=== PATIENT | female | born 1955 | race Caucasian/White ===

== ENCOUNTER 2020-06-30 08:14 | Outpatient (REF) | payer MEDICARE, MEDICAID, SELFPAY ==
[2020-06-30 11:53] LABS: Hematocrit 41.7 % (37-47); Hemoglobin 13.3 g/dl (12.0-16.0)
[2020-06-30 12:10] LABS: Alanine Aminotransferase 29 U/L (0-31); Albumin Level 4.8 g/dL (3.5-5.0); Alkaline Phosphatase 56 U/L (39-117); Anion Gap 16 (12-20); Aspartate Amino Transferase 26 U/L (5-31); Bilirubin Direct 0.2 mg/dL (0.0-0.5); Bilirubin Total 0.4 mg/dL (0.0-1.0); Blood Urea Nitrogen 15 mg/dL (9-16); Calcium 9.5 mg/dL (8.4-10.2); Carbon Dioxide 26 mmol/L (22-29); Chloride 101 mmol/L (96-108); Cholesterol 226 mg/dL; Estimated Glomerular Filt Rate > 60; Glucose Fasting 94 mg/dL (60-99); HDL Cholesterol 70 mg/dL; LDL Cholesterol Calculated 128 mg/dl; Potassium 4.1 mmol/l (3.3-5.1); Sodium 139 mmol/L (135-145); Total Protein 7.5 g/dL (6.5-8.0); Triglycerides 141 mg/dL
[2020-06-30 12:30] LABS: TSH reflex Free T4 3.95 mIU/mL (0.32-4.0)
== END 2020-06-30 08:15 | disposition home or self-care (01) ==
LOC: HO.HMGCLDS 08:14
PROVIDERS: PCP Internal Medicine; Visit Provider Internal Medicine
DX: F41.1 Generalized anxiety disorder (principal); E78.9 Disorder of lipoprotein metabolism, unspecified; E03.8 Other specified hypothyroidism
CPT/HCPCS: 36415; 80048; 80061; 80076; 84443; 85014; 85018

== ENCOUNTER 2020-09-20 14:22 | Outpatient (REF) | payer MEDICARE, MEDICAID, SELFPAY | END 2020-09-20 14:23 | disposition home or self-care (01) | LOC: HO.LAB 14:22 | PROVIDERS: Visit Provider Nurse Practitioner Family | DX: R53.83 Other fatigue (principal); Z20.822 Contact with and (suspected) exposure to COVID-19 | CPT/HCPCS: U0003; U0005 ==

== ENCOUNTER 2020-12-06 10:22 | Outpatient (REF) | payer MEDICARE, MEDICAID, SELFPAY ==
--- NOTE | 2020-12-06 11:42 | PFT_ITS ---
FLOWS: FEV1 of 61% of predicted at 1.79 L. FVC 86% of predicted at 3.29 L. FEV1 to FVC ratio of 0.54. No bronchodilator response. LUNG VOLUMES: Total lung capacity 128% of predicted at 7.48 L. Residual volume 194% of predicted at 4.56 L. Slow vital capacity 84% of predicted at 2.92 L. Expiratory reserve volume 71% of predicted at 0.71 L. Diffusion capacity is moderately decreased. IMPRESSION: Moderate obstructive ventilatory defect with no bronchodilator response. Increased total lung capacity suggests hyperinflation. Increased residual volume suggests air trapping. Decreased diffusion capacity suggests emphysema. MD MARCIO Smalls/MODL / [id number]
== END 2020-12-06 10:23 | disposition home or self-care (01) ==
LOC: HO.RESP 10:22
PROVIDERS: PCP Internal Medicine; Visit Provider Internal Medicine
DX: R06.02 Shortness of breath (principal); Z72.0 Tobacco use
CPT/HCPCS: 94060; 94727; 94729

== ENCOUNTER 2021-05-16 06:17 | Outpatient (REF) | payer MEDICARE, MEDICAID, SELFPAY ==
[2021-05-16 11:51] LABS: Alanine Aminotransferase 28 U/L (0-31); Albumin Level 4.7 g/dL (3.5-5.0); Alkaline Phosphatase 62 U/L (39-117); Anion Gap 19 (12-20); Aspartate Amino Transferase 24 U/L (5-31); Bilirubin Direct 0.2 mg/dL (0.0-0.5); Bilirubin Total 0.4 mg/dL (0.0-1.0); Blood Urea Nitrogen 19 mg/dL (9-16); Calcium 10.2 mg/dL (8.4-10.2); Carbon Dioxide 23 mmol/L (22-29); Chloride 102 mmol/L (96-108); Cholesterol 206 mg/dL; Estimated Glomerular Filt Rate > 60; Glucose Random 86 mg/dL (60-115); HDL Cholesterol 66 mg/dL; LDL Cholesterol Calculated 113 mg/dl; Potassium 4.6 mmol/L (3.3-5.1); Sodium 139 mmol/L (135-145); Total Protein 7.6 g/dL (6.5-8.0); Triglycerides 139 mg/dL
[2021-05-16 12:14] LABS: TSH reflex Free T4 3.25 uIU/mL (0.32-4.0)
[2021-05-18 04:52] LABS: LDL Cholesterol Direct 107 mg/dL (<100)
== END 2021-05-16 06:18 | disposition home or self-care (01) ==
LOC: HO.HMGCLDS 06:17
PROVIDERS: PCP Internal Medicine; Visit Provider Internal Medicine
DX: E03.8 Other specified hypothyroidism (principal); E78.9 Disorder of lipoprotein metabolism, unspecified; F41.1 Generalized anxiety disorder; Z72.0 Tobacco use
CPT/HCPCS: 36415; 80053; 80061; 82248; 83721; 84443

== ENCOUNTER 2021-12-26 07:27 | Outpatient (REF) | payer MEDICARE, MEDICAID, SELFPAY ==
[2021-12-26 11:52] LABS: Alanine Aminotransferase 22 U/L (0-31); Albumin Level 4.8 g/dL (3.5-5.0); Alkaline Phosphatase 66 U/L (39-117); Anion Gap 13 (12-20); Aspartate Amino Transferase 20 U/L (5-31); Bilirubin Total 0.5 mg/dL (0.0-1.0); Blood Urea Nitrogen 13 mg/dL (9-16); Calcium 9.8 mg/dL (8.4-10.2); Carbon Dioxide 28 mmol/L (22-29); Chloride 102 mmol/L (96-108); Estimated Glomerular Filt Rate > 60; Glucose Random 107 mg/dL (60-115); Potassium 4.7 mmol/L (3.3-5.1); Sodium 138 mmol/L (135-145); Total Protein 7.6 g/dL (6.5-8.0)
[2021-12-26 12:02] LABS: TSH reflex Free T4 1.87 uIU/mL (0.32-4.0)
== END 2021-12-26 07:28 | disposition home or self-care (01) ==
LOC: HO.HMGCLDS 07:27
PROVIDERS: PCP Internal Medicine; Visit Provider Internal Medicine
DX: E03.8 Other specified hypothyroidism (principal); E78.9 Disorder of lipoprotein metabolism, unspecified
CPT/HCPCS: 36415; 80053; 84443

== ENCOUNTER 2022-05-07 07:50 | Outpatient (REF) | payer MEDICARE, MEDICAID, SELFPAY ==
[2022-05-07 13:03] LABS: Alanine Aminotransferase 23 U/L (0-31); Albumin Level 4.7 g/dL (3.5-5.0); Alkaline Phosphatase 61 U/L (39-117); Anion Gap 12 (12-20); Aspartate Amino Transferase 24 U/L (5-31); Bilirubin Total 0.4 mg/dL (0.0-1.0); Blood Urea Nitrogen 17 mg/dL (9-16); Carbon Dioxide 27 mmol/L (22-29); Chloride 103 mmol/L (96-108); Estimated Glomerular Filt Rate > 60; Glucose Random 98 mg/dL (60-115); Potassium 4.3 mmol/L (3.3-5.1); Sodium 138 mmol/L (135-145); Total Protein 7.6 g/dL (6.5-8.0)
[2022-05-09 09:52] LABS: LDL Cholesterol Direct 111 mg/dL (<100)
== END 2022-05-07 07:51 | disposition home or self-care (01) ==
LOC: HO.HMGCLDS 07:50
PROVIDERS: PCP Internal Medicine; Visit Provider Internal Medicine
DX: E03.8 Other specified hypothyroidism (principal); E78.9 Disorder of lipoprotein metabolism, unspecified; J44.9 Chronic obstructive pulmonary disease, unspecified; Z72.0 Tobacco use
CPT/HCPCS: 36415; 80053; 83721; 84443

== ENCOUNTER 2022-11-05 06:08 | Outpatient (REF) | payer MEDICARE, MEDICAID, SELFPAY ==
[2022-11-05 11:18] LABS: MANUAL DIFF FLAG NO
[2022-11-05 11:37] LABS: Basophils Absolute Auto 0.1 X10*3/uL (0.0-0.2); Basophils Percent Auto 0.8 % (0-2); Eosinophils Absolute Auto 0.3 X10*3/uL (0.0-0.4); Eosinophils Percent Auto 3.5 % (0-4); Hematocrit 41.4 % (37.0-47.0); Hemoglobin 13.2 g/dl (12.0-16.0); Imm Gran Abs Auto 0.02 X10*3/uL (0.00-0.03); Imm Gran Pct Auto 0.3 % (0.0-0.4); Lymphocytes Absolute Auto 2.7 X10*3/uL (1.2-4.9); Lymphocytes Percent Auto 36.7 % (20-40); Mean Corpuscular HGB Conc 31.9 g/dl (31.0-35.0); Mean Corpuscular Hemoglobin 29.7 pg (27.0-33.0); Monocytes Absolute Auto 0.8 X10*3/uL (0.1-1.2); Monocytes Percent Auto 10.2 % (2-11); Neutrophils Absolute Auto 3.6 x10*3/uL (2.0-8.3); Neutrophils Percent Auto 48.5 % (45-73); Platelet Count 339 X10*3/uL (160-400); Red Blood Count 4.45 X10*6/uL (4.20-5.50); Red Cell Distribution Width 12.6 % (11.0-16.0); White Blood Count 7.4 X10*3/uL (4.8-10.8)
[2022-11-05 11:55] LABS: Alanine Aminotransferase 17 U/L (0-31); Albumin Level 4.5 g/dL (3.5-5.0); Alkaline Phosphatase 54 U/L (39-117); Anion Gap 12 (12-20); Aspartate Amino Transferase 19 U/L (5-31); Bilirubin Total 0.5 mg/dL (0.0-1.0); Blood Urea Nitrogen 13 mg/dL (9-16); Calcium 9.8 mg/dL (8.4-10.2); Carbon Dioxide 26 mmol/L (22-29); Chloride 107 mmol/L (96-108); Cholesterol 208 mg/dL; Estimated Glomerular Filt Rate > 60; Glucose Fasting 91 mg/dL (60-99); HDL Cholesterol 68 mg/dL; LDL Cholesterol Calculated 118 mg/dl; Potassium 4.1 mmol/L (3.3-5.1); Sodium 141 mmol/L (135-145); Total Protein 7.2 g/dL (6.5-8.0); Triglycerides 114 mg/dL
[2022-11-05 12:18] LABS: TSH reflex Free T4 1.72 uIU/mL (0.32-4.0)
== END 2022-11-05 06:09 | disposition home or self-care (01) ==
LOC: HO.HMGCLDS 06:08
PROVIDERS: PCP Internal Medicine; Visit Provider Internal Medicine
DX: Z00.01 Encounter for general adult medical examination with abnormal findings (principal); E03.8 Other specified hypothyroidism; E78.9 Disorder of lipoprotein metabolism, unspecified; J44.9 Chronic obstructive pulmonary disease, unspecified; Z72.0 Tobacco use
CPT/HCPCS: 36415; 80053; 80061; 84443; 85025

== ENCOUNTER 2023-04-29 09:30 | Outpatient (AMB) | payer MEDICARE, MEDICAID, SELFPAY ==
[2023-04-29 09:38] VITALS: BP 122/70; PULSE 111; O2SAT 98; BMI 18.2
--- NOTE | 2023-04-29 09:38 | MHC.PC.OV ---
Vital Signs 04/29/23 09:38 Height 5 ft 8 in Weight 120 lb BMI 18.2 BP 122/70 Blood Pressure Location Rt brachial Position Sitting Pulse 111 H Pulse Source Pulse Oximeter Pulse Oximetry (%) 98 Oxygen Delivery Method Room Air Intake Visit Reasons: 6 month follow up Commodity Director Required: No Accompanied by: Self / Same As Patient Allergies No Known Drug Allergies [NO KNOWN DRUG ALLERGIES] Allergy (Unknown, Verified 04/29/23 09:38) NONE Medication List - Last Reconciled 04/29/23 by Phill Bird MD levothyroxine 50 mcg PO DAILY 90 days simvastatin 20 mg PO BEDTIME 90 days valacyclovir 1,000 mg PO DAILY 30 days Tobacco use date assessed: 10/30/22 Fall risk assessment: No Falls in past year Last assessed Fall Risk: 04/29/23 Dental Screening Dental Screen Date: 04/29/23 Did you have a dental visit in the last 12 months?: Yes Did you have a dental problem in the last 6 months where you did not have access to dental care?: No Was dental information given to patient?: Patient has dentist HPI 6 month follow up HPI Details Patient is 67-year-old female came in today for her regular follow-up appointment Patient says that she has stop smoking marijuana that she was smoking for years And she feels very anxious now, she agree to take medication I have sent Lexapro 10 mg tablets patient is to take half a tablet for a week and then full tablet However she continued to smoke tobacco. Patient have moderate COPD , she has been declining to see environmental communications specialist all this time. She had pulmonary function test last year which showed the moderate COPD She continued to decline to use any inhalers at this time. But admits to wheezing at night and having difficulty breathing at night as well Pulse ox is 98% on room air She agree to see environmental communications specialist finally and has appointment next month Hypothyroidism: Patient is on levothyroxine her TSH has been stable She is due for labs Lipid disorder: Continue statin, no side effects. 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 Mother No problems noted. Brother No problems noted. Brother Substance use disorder Brother Fibromyalgia Daughter No problems noted. Sister No problems noted. Sister No problems noted. Sister No problems noted. Sister No problems noted. Sister No problems noted. Sister No problems noted. Sister No problems noted. Social History Housing: Assisted Living Facility Alcohol intake: former Patient Tobacco Use Status: Current everyday Tobacco user Cigarettes Per Day: 10 e-Cigarette/Vaping Use: Never Used service: No Current occupational status: retired Cognitive needs: No Hearing needs: No Vision needs: Yes Questionnaire PHQ-9 Over the last 2 weeks, how often have you been bothered by any of the following problems? 1. Little interest or pleasure in doing things: not at all 2. Feeling down, depressed, or hopeless: more than half the days 3. Trouble falling or staying asleep, or sleeping too much: more than half the days 4. Feeling tired or having little energy: more than half the days 5. Poor appetite or overeating: not at all 6. Feeling bad about yourself - or that you are a failure or have let yourself or your family down: more than half the days 7. Trouble concentrating on things, such as reading the newspaper or watching television: more than half the days 8. Moving or speaking so slowly that other people could have noticed. Or the opposite - being so fidgety or restless that you have been moving around a lot more than usual: more than half the days 9. Thoughts that you would be better off or of hurting yourself in some way: not at all Total score: 12 Depression Screening Interpretation: Positive Depression Screening Follow-up: New Medication prescribed and Community Mental Health Worker F/U Depression Screening Done: Yes 27336 - PHQ-9 Billing: Yes Source: Developed by Drs. Lester Mora, Dulce Byers, Mina Buckley and colleagues, with an educational iglesia from [employer]. Thrive Questionnaire Date Thrive assessed: 04/29/23 I am a: Patient What is your living situation today?: I have a steady place to live Within the past 12 months, did the food you bought not last and you didn't have the money to get more?: Never true Within the past 12 months, did you worry whether your food would run out before you got money to buy more?: Never true Do you have trouble paying for medicines?: No Do you have trouble getting transportation to medical appointments?: Yes Do you have trouble paying your heating and electricity bill?: No Do you have trouble taking care of your child, family member or friend?: No Do you have trouble with day-to-day activities such as bathing, preparing meals, shopping, managing finances, etc.?: No Are you currently unemployed and looking for a job?: No Are you interested in more education?: No Please select the resources that you would like help with: None Currently or been in a relationship where the following occur: no concerns reported CHELITA-7 AMB Questionnaire CHELITA-7 Date CHELITA - 7 assessed: 04/29/23 Feeling nervous, anxious, or on edge: 3 = Nearly every day Not being able to stop or control worryin = More than half the days Worrying too much about different things: 2 = More than half the days Trouble relaxin = Nearly every day Being so restless that it is hard to sit still: 2 = More than half the days Becoming easily annoyed or irritable: 3 = Nearly every day Feeling afraid as if something awful might happen: 3 = Nearly every day Total CHELITA-7 score (0-4 normal; 5-9 mild; 10-14 moderate; 15-21 severe): 18 Source: Developed by Drs. Lester Mora, Dulce Byers, Mina Buckley and colleagues, with an educational iglesia from [employer]. CHELITA-7 Assessment Billing CHELITA-7 Assessment Tool: CHELITA-7 Assessment 57084 Review of Systems Const Denies chills and Denies fever(s) ENT Denies epistaxis and Denies nasal discharge Card Denies chest pain Resp Denies chest congestion and Denies hemoptysis GI Denies diarrhea and Denies nausea Skin/Breast Denies rash Neuro Reports no additional complaints Psych Reports no additional complaints Endo Reports no additional complaints Physical exam (Primary Care) Vital Signs: Last Vital Signs Pulse 111 H 04/29/23 09:38 BP 122/70 04/29/23 09:38 Pulse Ox 98 04/29/23 09:38 Oxygen Delivery Method Room Air 04/29/23 09:38 BMI result Body Mass Index 18.2 Tobacco/Smoking Status: Tobacco use Status Tobacco use date assessed 10/30/22 04/29/23 09:38 Patient Tobacco Use Status Current everyday Tobacco 04/29/23 09:38 e-Cigarette/Vaping Use Never Used 04/29/23 09:38 PHQ-9: PHQ-9 Score PHQ-9: Total score 12 04/29/23 10:19 Depression Screening Interpretation: Positive Depression Screening Follow-up: New Medication prescribed and Community Mental Health Worker F/U Thrive Assessment: Date of Thrive Assessment Date Thrive assessed 04/29/23 04/29/23 10:19 Currently or been in a relationship where the following occur: no concerns reported Const General: cooperative, comfortable and no acute distress Orientation/consciousness: patient oriented x3 HENMT Head: Yes normocephalic Eyes General: appearance normal, both eyes and all related structures Neck Neck: Yes supple Resp Effort & Inspection: normal respiratory effort, no cough and no stridor Cardio Rhythm: regular rhythm Heart sounds: S1 normal heart sound present and S2 normal heart sound present Skin General skin exam: turgor normal Neuro General: patient oriented x3, tone normal and moves all extremities Extrem Right lower extremity: no edema Left lower extremity: no edema Assessment and Plan Assessment & Plan (1) Anxiety, generalized: Code(s): F41.1 - Generalized anxiety disorder (2) Lipid disorder: Code(s): E78.9 - Disorder of lipoprotein metabolism, unspecified (3) Other specified hypothyroidism: Code(s): E03.8 - Other specified hypothyroidism (4) Major depression, recurrent: Code(s): F33.9 - Major depressive disorder, recurrent, unspecified Qualifiers: Active/Remission status: currently active Major depression episode severity: moderate Qualified Code(s): F33.1 - Major depressive disorder, recurrent, moderate (5) COPD, moderate: Code(s): J44.9 - Chronic obstructive pulmonary disease, unspecified (6) Tobacco abuse: Code(s): Z72.0 - Tobacco use (7) Chromhidrosis: Code(s): 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 Patient have moderate COPD , she has been declining to see environmental communications specialist all this time. She had pulmonary function test last year which showed the moderate COPD She continued to decline to use any inhalers at this time. But admits to wheezing at night and having difficulty breathing at night as well Pulse ox is 98% on room air She agree to see environmental communications specialist finally and has appointment next month Hypothyroidism: Patient is on levothyroxine her TSH has been stable She is due for labs Lipid disorder: Continue statin, no side effects. 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 We will call patient in 3 weeks to see how she is doing with the new medication Patient will return in 4 months for follow-up appointment Orders: Orders Complete Blood Count Auto Diff Today E03.8 - Other specified hypothyroidism, E78.9 - Disorder of lipoprotein metabolism, unspecified, F41.1 - Generalized anxiety disorder, J44.9 - Chronic obstructive pulmonary disease, unspecified, Z72.0 - Tobacco use Lipid Panel Today E03.8 - Other specified hypothyroidism, E78.9 - Disorder of lipoprotein metabolism, unspecified, F41.1 - Generalized anxiety disorder, J44.9 - Chronic obstructive pulmonary disease, unspecified, Z72.0 - Tobacco use Comprehensive Needles. Panel Fast Today E03.8 - Other specified hypothyroidism, E78.9 - Disorder of lipoprotein metabolism, unspecified, F41.1 - Generalized anxiety disorder, J44.9 - Chronic obstructive pulmonary disease, unspecified, Z72.0 - Tobacco use TSH reflex Free T4 Today E03.8 - Other specified hypothyroidism, E78.9 - Disorder of lipoprotein metabolism, unspecified, F41.1 - Generalized anxiety disorder, J44.9 - Chronic obstructive pulmonary disease, unspecified, Z72.0 - Tobacco use Medications: New escitalopram oxalate (Lexapro) 10 mg PO DAILY 30 tabs 0RF Coding Level of Care Code Est Pt Level 4 (56996) Diagnoses Anxiety, generalized F41.1 Lipid disorder E78.9 Other specified hypothyroidism E03.8 Moderate episode of recurrent major depressive disorder F33.1 Active/Remission status: currently active Major depression episode severity: moderate COPD, moderate J44.9 Tobacco abuse Z72.0 Chromhidrosis L75.1 Additional Codes CHELITA-7 Assessment Billing - CHELITA-7 Assessment Tool: CHELITA-7 Assessment 14869 ([id number])
== END 2023-04-29 10:26 | disposition home or self-care (01) ==
PROVIDERS: Visit Provider Internal Medicine
DX: F41.1 Generalized anxiety disorder (principal); F33.1 Major depressive disorder, recurrent, moderate; J44.9 Chronic obstructive pulmonary disease, unspecified; E03.8 Other specified hypothyroidism; E78.9 Disorder of lipoprotein metabolism, unspecified; Z72.0 Tobacco use; L75.1 Chromhidrosis
CPT/HCPCS: 96127; 99214

== ENCOUNTER 2023-04-30 07:22 | Outpatient (REF) | payer MEDICARE, MEDICAID, SELFPAY ==
[2023-04-30 11:20] LABS: MANUAL DIFF FLAG NO
[2023-04-30 12:03] LABS: Alanine Aminotransferase 22 U/L (0-31); Albumin Level 4.6 g/dL (3.5-5.0); Alkaline Phosphatase 57 U/L (39-117); Anion Gap 11 (12-20); Aspartate Amino Transferase 21 U/L (5-31); Bilirubin Total 0.5 mg/dL (0.0-1.0); Blood Urea Nitrogen 13 mg/dL (9-16); Calcium 9.9 mg/dL (8.4-10.2); Carbon Dioxide 28 mmol/L (22-29); Chloride 106 mmol/L (96-108); Cholesterol 207 mg/dL (<200); Estimated Glomerular Filt Rate > 60; Glucose Fasting 91 mg/dL (60-99); HDL Cholesterol 68 mg/dL (>40); LDL Cholesterol Calculated 116 mg/dL (<100); Potassium 3.8 mmol/L (3.3-5.1); Sodium 141 mmol/L (135-145); Total Protein 7.7 g/dL (6.5-8.0); Triglycerides 116 mg/dL (<150)
[2023-04-30 12:04] LABS: Basophils Absolute Auto 0.1 X10*3/uL (0.0-0.2); Basophils Percent Auto 0.9 % (0-2); Eosinophils Absolute Auto 0.3 X10*3/uL (0.0-0.4); Eosinophils Percent Auto 3.6 % (0-4); Hematocrit 41.4 % (37.0-47.0); Hemoglobin 13.2 g/dl (12.0-16.0); Imm Gran Abs Auto 0.01 X10*3/uL (0.00-0.03); Imm Gran Pct Auto 0.1 % (0.0-0.4); Lymphocytes Percent Auto 38.9 % (20-40); Mean Corpuscular HGB Conc 31.9 g/dl (31.0-35.0); Mean Corpuscular Hemoglobin 29.9 pg (27.0-33.0); Mean Corpuscular Volume 93.7 fL (80.0-98.0); Mean Platelet Volume 9.2 fL (9.4-12.3); Monocytes Absolute Auto 0.7 X10*3/uL (0.1-1.2); Monocytes Percent Auto 9.1 % (2-11); Neutrophils Absolute Auto 3.6 x10*3/uL (2.0-8.3); Neutrophils Percent Auto 47.4 % (45-73); Platelet Count 376 X10*3/uL (160-400); Red Blood Count 4.42 X10*6/uL (4.20-5.50); Red Cell Distribution Width 12.4 % (11.0-16.0); White Blood Count 7.6 X10*3/uL (4.8-10.8)
[2023-04-30 12:09] LABS: TSH reflex Free T4 1.74 uIU/mL (0.32-4.0)
== END 2023-04-30 07:23 | disposition home or self-care (01) ==
LOC: HO.HMGCLDS 07:22
PROVIDERS: PCP Internal Medicine; Visit Provider Internal Medicine
DX: F41.1 Generalized anxiety disorder (principal); E78.9 Disorder of lipoprotein metabolism, unspecified; E03.8 Other specified hypothyroidism; J44.9 Chronic obstructive pulmonary disease, unspecified; Z72.0 Tobacco use
CPT/HCPCS: 36415; 80053; 80061; 84443; 85025

== ENCOUNTER 2023-05-02 12:25 | Outpatient (AMB) | payer MEDICARE, MEDICAID, SELFPAY ==
--- NOTE | 2023-05-02 12:45 | MHC.PC.OV ---
Vital Signs 05/02/23 12:46 Height 5 ft 8 in Weight 118 lb 6 oz BMI 18.0 BP 120/58 L Blood Pressure Location Rt brachial Position Sitting Pulse 103 H Pulse Source Pulse Oximeter Pulse Oximetry (%) 98 Oxygen Delivery Method Room Air Intake Visit Reasons: Chest Pain EKG ~ Allergies No Known Drug Allergies [NO KNOWN DRUG ALLERGIES] Allergy (Unknown, Verified 05/02/23 13:52) NONE Medication List - Last Reconciled 05/02/23 by Phill Bird MD escitalopram oxalate (Lexapro) 10 mg PO DAILY levothyroxine 50 mcg PO DAILY 90 days simvastatin 20 mg PO BEDTIME 90 days valacyclovir 1,000 mg PO DAILY 30 days Tobacco use date assessed: 10/30/22 HPI Chest Pain EKG ~ HPI Details Patient is 68-year-old female came in today to be evaluated for chest pain that she has been having for the past 2 days Patient says that pain is located in the mid of her chest and feels like pressure. There is no associated diaphoresis or radiation of pain there is no nausea vomiting Patient does have anxiety and is taking no medication. She was called in today to have an EKG. Couple of days ago when patient called us we instructed her to go to emergency room but patient got upset and hang up EKG done today shows T-wave inversion in AVR v1 v2, , tall T-waves in lateral leads We give patient aspirin and put her on 2 L of oxygen Ambulance was called in she agree to go to emergency room for evaluation. I have no previous EKG to compare [facility] Medical History Other specified hypothyroidism Surgical History No pertinent past surgical history Family History Father No problems noted. Mother No problems noted. Brother No problems noted. Brother Substance use disorder Brother Fibromyalgia Daughter No problems noted. Sister No problems noted. Sister No problems noted. Sister No problems noted. Sister No problems noted. Sister No problems noted. Sister No problems noted. Sister No problems noted. Social History Housing: Assisted Living Facility Alcohol intake: current Alcohol intake frequency: holidays/special occasions only Patient Tobacco Use Status: Current everyday Tobacco user Cigarettes Per Day: 10 Smoked in Last 30 Days: Yes e-Cigarette/Vaping Use: Never Used Use of substances other than those prescribed or required for medical reasons: Yes Substance Use Type: Marijuana Advance Directives: Yes Advance Directives Information Provided: Yes Advance Directives on File: No service: No Current occupational status: retired Cognitive needs: No Hearing needs: No Vision needs: Yes Questionnaire Thrive Questionnaire Date Thrive assessed: 04/29/23 CHELITA-7 AMB Questionnaire CHELITA-7 Date CHELITA - 7 assessed: 04/29/23 Source: Developed by Drs. Lester Mora, Dulce Byers, Mina Buckley and colleagues, with an educational iglesia from [employer]. Review of Systems Const Denies chills and Denies fever(s) ENT Denies epistaxis and Denies nasal discharge Resp Denies chest congestion, Denies cough and Denies hemoptysis GI Denies diarrhea and Denies nausea Skin/Breast Denies rash Neuro Reports no additional complaints Psych Reports no additional complaints Endo Reports no additional complaints Physical exam (Primary Care) Vital Signs: Last Vital Signs Pulse 103 H 05/02/23 12:46 BP 120/58 L 05/02/23 12:46 Pulse Ox 98 05/02/23 12:46 Oxygen Delivery Method Room Air 05/02/23 12:46 BMI result Body Mass Index 18.0 Tobacco/Smoking Status: Tobacco use Status Tobacco use date assessed 10/30/22 05/02/23 12:47 Patient Tobacco Use Status Current everyday Tobacco 05/02/23 12:47 e-Cigarette/Vaping Use Never Used 05/02/23 12:47 Thrive Assessment: Date of Thrive Assessment Date Thrive assessed 04/29/23 05/02/23 12:47 Const General: cooperative, comfortable and no acute distress Orientation/consciousness: patient oriented x3 HENMT Head: Yes normocephalic Eyes General: appearance normal, both eyes and all related structures Neck Neck: Yes supple Resp Effort & Inspection: normal respiratory effort, no cough and no stridor Cardio Rhythm: regular rhythm Heart sounds: S1 normal heart sound present and S2 normal heart sound present Skin General skin exam: turgor normal Neuro General: patient oriented x3, tone normal and moves all extremities Extrem Right lower extremity: no edema Left lower extremity: no edema Office Meds aspirin 325 mg tablet Performing Provider: Phill Bird MD Performing Location: [facility] Administered by: Helga Briceño RN on 05/02/23 13:03 Dose Route Admin Location Dispensed Lot Number Expiration Date NDC Segmental Paver Installer 325 mg PO 325 mg [id number] 10/15/23 17758-345-45 [employer] Assessment and Plan Assessment & Plan (1) Acute chest pain: Code(s): R07.9 - Chest pain, unspecified Plan Patient is 68-year-old female came in today to be evaluated for chest pain that she has been having for the past 2 days Patient says that pain is located in the mid of her chest and feels like pressure. There is no associated diaphoresis or radiation of pain there is no nausea vomiting Patient does have anxiety and is taking no medication. She was called in today to have an EKG. Couple of days ago when patient called us we instructed her to go to emergency room but patient got upset and hang up EKG done today shows T-wave inversion in AVR v1 v2, , tall T-waves in lateral leads We give patient aspirin and put her on 2 L of oxygen Ambulance was called in she agree to go to emergency room for evaluation. I have no previous EKG to compare Patient also have history of severe COPD And hypothyroidism Orders: Orders AMB Aspirin Adult Dose Today R07.9 - Chest pain, unspecified Coding Level of Care Code Est Pt Level 5 (46104) Diagnoses Acute chest pain R07.9
[2023-05-02 12:46] VITALS: BP 120/58; PULSE 103; O2SAT 98; BMI 18.0
== END 2023-05-02 13:43 | disposition home or self-care (01) ==
PROVIDERS: PCP Internal Medicine; Visit Provider Internal Medicine
DX: R07.9 Chest pain, unspecified (principal)
CPT/HCPCS: 93010; 99215

== ENCOUNTER 2023-05-02 13:38 | Emergency (ER) | payer MEDICARE, MEDICAID, SELFPAY ==
--- NOTE | 2023-05-02 | ECG_ITS ---
Test Reason : CHEST PAIN Blood Pressure : / mmHG Vent. Rate : 070 BPM Atrial Rate : 070 BPM P-R Int : 156 ms QRS Dur : 088 ms QT Int : 392 ms P-R-T Axes : 078 122 073 degrees QTc Int : 423 ms Normal sinus rhythm with sinus arrhythmia Right axis deviation RSR' or QR pattern in V1 suggests right ventricular conduction delay Pulmonary disease pattern Minimal voltage criteria for LVH, may be normal variant ( Jatin product ) Abnormal ECG When compared with ECG of 22-SEP-2012 19:48, Vent. rate has decreased BY 50 BPM Referred By: Generic ED Physician Electronically Signed By:PARKER SCHWAB MD
--- NOTE | ~2023-05-02 | XR_ITS ---
EXAMINATION: CHEST 2 VIEWS CLINICAL INFORMATION: chest pain. COMPARISON: 04/01/2015. TECHNIQUE: PA and lateral views of the chest obtained. FINDINGS: The lungs are hyperinflated with flattening to the diaphragms and increased retrosternal airspace again noted. No focal infiltrate, effusion, edema, or pneumothorax. Cardiac and mediastinal silhouettes are within normal limits for technique. No acute bony abnormality seen XR/XR chest 2V IMPRESSION: Hyperinflated but otherwise no evidence of acute disease.
[2023-05-02 13:52] VITALS: BMI 17.8
[2023-05-02 13:58] VITALS: BP 117/65; PULSE 68; RESP 18; TEMP 36.9; O2SAT 97
--- NOTE | 2023-05-02 14:08 | ED_ITS ---
HPI - Chest Pain General Chief Complaint: Chest Pain Stated Complaint: CHEST PAIN Time Seen by Provider: 05/02/23 13:58 Source: patient, EMS and RN notes reviewed Mode of arrival: EMS Limitations: no limitations History of Present Illness HPI narrative: Patient is a 68-year-old female with history of COPD, hypothyroid, current smoker, anxiety presenting to the emergency department from PCP office for abnormal EKG. Patient saw PCP on 04/29 for routine visit and forgot to mention that she has been having intermittent episodes of chest pain for the past month. She states that she called her PCP shortly after leaving the appointment and reported the chest pain, so was back in the office today for EKG and evaluation of chest pain. States episodes are brief, lasting a few seconds, and occur at rest. States they are not associated with shortness of breath. Denies any nausea, vomiting, or diaphoresis associated with episodes. Denies any palpitations, dizziness or lightheadedness. Denies fevers. Denies any radiation of pain. Denies any episodes of chest pain today. Denies calf pain or swelling. States I feel like it's because of my smoking. complaint: chest pain Pertinent past history: other (COPD) Onset (ago): month(s) Timing of current episode: episodic Prior episodes: Yes Onset: during rest Pain location: substernal Pain radiation: none Severity: moderate Quality: sharp and shooting Relieving factors: nothing Exacerbating factors: nothing Treatment prior to arrival: none Related Data Previous Rx's Medication Instructions Recorded valacyclovir 1 gram tablet 1,000 mg PO DAILY 30 days #30 tabs 01/13/23 levothyroxine 50 mcg tablet 50 mcg PO DAILY 90 days #90 tabs 04/25/23 simvastatin 20 mg tablet 20 mg PO BEDTIME 90 days #90 tabs 04/25/23 escitalopram oxalate 10 mg tablet 10 mg PO DAILY #30 tabs 04/29/23 (Lexapro) Allergies Allergy/AdvReac Type Severity Reaction Status Date / Time No Known Drug Allergies Allergy Unknown NONE Verified 05/02/23 13:52 [NO KNOWN DRUG ALLERGIES] Review of Systems 2 Review of Systems: As per HPI. Yes all other systems are reviewed and are negative Constitutional: Constitutional: Reports as per HPI FOR[facility]LY [facility], [facility] Past Medical History Medical History Other specified hypothyroidism Surgical History No pertinent past surgical history Family History Family History Father No problems noted. Mother No problems noted. Brother No problems noted. Brother Substance use disorder Brother Fibromyalgia Daughter No problems noted. Sister No problems noted. Sister No problems noted. Sister No problems noted. Sister No problems noted. Sister No problems noted. Sister No problems noted. Sister No problems noted. Social History Social History Housing: Assisted Living Facility Alcohol intake: current Alcohol intake frequency: holidays/special occasions only Patient Tobacco Use Status: Current everyday Tobacco user Cigarettes Per Day: 10 Smoked in Last 30 Days: Yes e-Cigarette/Vaping Use: Never Used Use of substances other than those prescribed or required for medical reasons: Yes Substance Use Type: Marijuana Advance Directives: Yes Advance Directives Information Provided: Yes Advance Directives on File: No service: No Current occupational status: retired Cognitive needs: No Hearing needs: No Vision needs: Yes Physical Exam 2 Vital Signs: Vital Signs: Last Vital Signs Temp 97.2 F 05/02/23 18:00 Pulse 64 05/02/23 18:00 Resp 16 05/02/23 18:00 BP 113/71 05/02/23 18:00 Pulse Ox 98 05/02/23 18:00 O2 Del Method Room Air 05/02/23 18:00 BMI result Body Mass Index 17.8 Vital signs have been reviewed and appear to be correct. Blood pressure normal. Heart rate normal. Respiratory rate normal. Temperature normal. Oxygen saturation normal. Const: General: cooperative, healthy appearing and no acute distress O rientation/consciousness: oriented to person, oriented to place, oriented to time and patient oriented x3 Limitations: no limitations HEENT: Head: Yes normocephalic and Yes atraumatic Ears: external ears normal General nose exam: Normal external nose present Face and sinus: Yes face symmetric Mouth: oropharynx normal and moist mucous membranes Throat: Yes uvula midline Eyes: Pupils: Equal, round and reactive pupils present Neck: Neck: Yes normal visual inspection and Yes supple Resp: Effort & Inspection: normal respiratory effort and able to speak in complete sentences Auscultation: clear to auscultation bilaterally Cardio: Rate: regular rate Rhythm: regular rhythm Heart sounds: S1 normal heart sound present and S2 normal heart sound present GI: Palpation (GI): Soft to palpation and nontender Auscultation: n ormoactive bowel sounds : General: Yes no CVA tenderness Back/Spine/Pelvis: Back: no CVA tenderness Skin: General skin exam: elasticity normal and turgor normal Neuro: General: oriented to person, oriented to place, oriented to time, patient oriented x3, moves all extremities, no focal motor deficits and CN's II- XI intact bilaterally Cranial nerves: Yes Equal, round and reactive pupils present Cognition (Neuro): normal cognition Extrem: General: Yes full ROM, Yes no pedal edema and Yes no calf tenderness Psych: Mental Status: mental status grossly normal Affect: normal affect Thought process: Normal thought process present Course Reevaluation(s) Reevaluation #1: repeat troponin also negative, patient stable for discharge. Time: 19:21 Medical Decision Making Medical Decision Making MDM Narrative: Patient is a 68-year-old female with history of COPD, hypothyroid, current smoker, anxiety presenting to the emergency department from PCP office for abnormal EKG. On exam patient is awake, A+Ox3, VS WNL, afebrile, normal neurological exam without focal deficits, physical exam findings as above. Given reported symptoms and physical exam findings, initial differential includes ACS, GERD, musculoskeletal pain. Less likely pneumonia, pneumothorax. Do not suspect aortic dissection, esophageal rupture, tamponade, endocarditis, pericarditis. PCP note states EKG in the office showed T wave inversion in AVR, V1, V2, tall T waves in lateral leads with no prior for comparison. She was given 324mg ASA there. Initial EKG here shows T wave inversion in AVR, V1, no inversion in v2, very slight ST elevation in v2, v3. Repeat EKG shows T wave inversion in AVR, V1, V2 with slight ST elevation in v3. Wells score 0, unlikely PE. Labs notable for no leukocytosis, no anemia, no significant electrolyte abnormalities, negative initial troponin. X-ray notable for hyperinflated lungs, no evidence of pna or ptx. My interpretation is in agreement with the radiologist's interpretation. Low risk HEART score of 3. Case discussed with Dr. Oro who feels that given EKG changes, should obtain repeat troponin in 3 hours. Patient signed out to BASSAM Chatterjee pending repeat trop. Wells' Criteria for Pulmonary Embolism from [employer] on 05/02/2023 All calculations should be rechecked by clinician prior to use RESULT SUMMARY: 0.0 points Low risk group: 1.3% chance of PE in an ED population. Another study assigned scores <=4 as ?PE Unlikely? and had a 3% incidence of PE. INPUTS: Clinical signs and symptoms of DVT ?> 0 = No PE is #1 diagnosis OR equally likely ?> 0 = No Heart rate > 100 ?> 0 = No Immobilization at least 3 days OR surgery in the previous 4 weeks ?> 0 = No Previous, objectively diagnosed PE or DVT ?> 0 = No Hemoptysis ?> 0 = No Malignancy w/ treatment within 6 months or palliative ?> 0 = No Differential Diagnosis Differential Diagnoses: The differential diagnosis associated with the presentation includes As per [facility] Admission/Observation Consideration of admission/observation: Escalation of care including admission/observation considered Lab Data [facility] Lab Attestation statement: I reviewed the patient's lab results. As per [facility] 05/02/23 14:39 05/02/23 14:39 Labs: Lab Results 05/02/23 05/02/23 Range/Units 14:39 18:06 WBC 8.2 (4.8-10.8) X10*3/uL RBC 4.33 (4.20-5.50) X10*6/uL Hgb 12.8 (12.0-16.0) g/dl Hct 39.4 (37.0-47.0) % MCV 91.0 (80.0-98.0) fL MCH 29.6 (27.0-33.0) pg MCHC 32.5 (31.0-35.0) g/dl RDW 12.2 (11.0-16.0) % Plt Count 280 D (160-400) X10*3/uL MPV 8.2 L (9.4-12.3) fL Immature Gran % (Auto) 0.1 (0.0-0.4) % Neut % (Auto) 62.5 (45-73) % Lymph % (Auto) 27.1 (20-40) % [place] % (Auto) 7.7 (2-11) % Eos % (Auto) 2.1 (0-4) % Baso % (Auto) 0.5 (0-2) % Lymph # (Auto) 2.2 (1.2-4.9) X10*3/uL [place] # (Auto) 0.6 (0.1-1.2) X10*3/uL Eos # (Auto) 0.2 (0.0-0.4) X10*3/uL Baso # (Auto) 0.0 (0.0-0.2) X10*3/uL Abs Immat Gran (auto) 0.01 (0.00-0.03) X10*3/uL Absolute Neuts (auto) 5.1 (2.0-8.3) x10*3/uL Absolute Nucleated RBC 0.000 (0.0-0.012) X10*3/uL Nucleated RBC % (auto) 0.0 (0.0-0.2) /100WBC PT 11.7 (11.1-13.3) SEC INR 1.0 (0.9-1.1) Sodium 139 (135-145) mmol/L Potassium 4.3 (3.3-5.1) mmol/L Chloride 105 (96-108) mmol/L Carbon Dioxide 28 (22-29) mmol/L Anion Gap 10 L (12-20) BUN 16 (9-16) mg/dL Creatinine 0.66 (0.5-1.4) mg/dL Estim Creat Clear Calc 71.5 Estimated GFR > 60 Random Glucose 90 (60-115) mg/dL Calcium 9.7 (8.4-10.2) mg/dL Total Bilirubin 0.3 (0.0-1.0) mg/dL AST 20 (5-31) U/L ALT 18 (0-31) U/L Alkaline Phosphatase 56 (39-117) U/L Troponin I High Sens < 2.7 < 2.7 (<3.5-17.0) ng/L Total Protein 7.2 (6.5-8.0) g/dL Albumin 4.4 (3.5-5.0) g/dL Independent Interpretation I performed an independent interpretation of an: Plain X-Ray Interpretation: Hyperinflated lungs, no evidence of pneumonia or pneumothorax Radiology Impression Discussion of test interpretation with radiology: I have reviewed the radiologist's reading. Radiologist Impression: XR/XR chest 2V IMPRESSION: Hyperinflated but otherwise no evidence of acute disease. External Record Review External record reviewed: Inpatient record, Office record and Outpatient record Discharge Plan Discharge Clinical Impression: Chest pain Patient Disposition: Home, Self-Care Instructions: Chest Pain (DC) Additional Instructions: You were evaluated in the emergency department today for chest pain. Your evaluation has shown no signs of medical conditions requiring emergent intervention at this time, however we recommend that you follow-up with a blacksmith helper as soon as possible for further testing as an outpatient. You are being referred to [facility] cardiology, please call their office to set up an appointment. Please schedule an appointment for follow-up with your primary care physician as soon as possible. Return to the emergency department if you experience worsening or uncontrolled chest pain, shortness of breath, lightheadedness, feeling faint, loss of consciousness, nausea, vomiting, or any other concerning symptoms. Prescriptions: No Action valacyclovir 1 gram tablet 1,000 mg PO DAILY 30 Days Qty: 30 0RF levothyroxine 50 mcg tablet 50 mcg PO DAILY 90 Days Qty: 90 1RF simvastatin 20 mg tablet 20 mg PO BEDTIME 90 Days Qty: 90 0RF escitalopram oxalate [Lexapro] 10 mg tablet 10 mg PO DAILY Qty: 30 0RF Referrals: [facility] Cardiovascular Services [Provider Group]
--- NOTE | 2023-05-02 14:26 | PC.NURSE ---
tech bedside performing ekg/obtaining labs.
[2023-05-02 14:43] LABS: MANUAL DIFF FLAG NO
[2023-05-02 14:45] LABS: Basophils Percent Auto 0.5 % (0-2); Eosinophils Absolute Auto 0.2 X10*3/uL (0.0-0.4); Eosinophils Percent Auto 2.1 % (0-4); Hematocrit 39.4 % (37.0-47.0); Hemoglobin 12.8 g/dl (12.0-16.0); Imm Gran Abs Auto 0.01 X10*3/uL (0.00-0.03); Imm Gran Pct Auto 0.1 % (0.0-0.4); Lymphocytes Absolute Auto 2.2 X10*3/uL (1.2-4.9); Lymphocytes Percent Auto 27.1 % (20-40); Mean Corpuscular HGB Conc 32.5 g/dl (31.0-35.0); Mean Corpuscular Hemoglobin 29.6 pg (27.0-33.0); Mean Platelet Volume 8.2 fL (9.4-12.3); Monocytes Absolute Auto 0.6 X10*3/uL (0.1-1.2); Monocytes Percent Auto 7.7 % (2-11); Neutrophils Absolute Auto 5.1 x10*3/uL (2.0-8.3); Neutrophils Percent Auto 62.5 % (45-73); Platelet Count 280 X10*3/uL (160-400); Red Blood Count 4.33 X10*6/uL (4.20-5.50); Red Cell Distribution Width 12.2 % (11.0-16.0); White Blood Count 8.2 X10*3/uL (4.8-10.8)
[2023-05-02 14:54] LABS: Prothrombin Time 11.7 SEC (11.1-13.3)
[2023-05-02 15:06] LABS: Alanine Aminotransferase 18 U/L (0-31); Albumin Level 4.4 g/dL (3.5-5.0); Alkaline Phosphatase 56 U/L (39-117); Anion Gap 10 (12-20); Aspartate Amino Transferase 20 U/L (5-31); Bilirubin Total 0.3 mg/dL (0.0-1.0); Blood Urea Nitrogen 16 mg/dL (9-16); Calcium 9.7 mg/dL (8.4-10.2); Carbon Dioxide 28 mmol/L (22-29); Chloride 105 mmol/L (96-108); Creatinine Clr Calc Pharmacy 71.5; Estimated Glomerular Filt Rate > 60; Glucose Random 90 mg/dL (60-115); Potassium 4.3 mmol/L (3.3-5.1); Sodium 139 mmol/L (135-145); Total Protein 7.2 g/dL (6.5-8.0)
[2023-05-02 15:16] LABS: Troponin-I High Sensitivity < 2.7 ng/L (<3.5-17.0)
--- NOTE | 2023-05-02 15:32 | ECG_ITS ---
Test Reason : CHEST PAIN Blood Pressure : / mmHG Vent. Rate : 063 BPM Atrial Rate : 063 BPM P-R Int : 166 ms QRS Dur : 090 ms QT Int : 408 ms P-R-T Axes : 076 111 069 degrees QTc Int : 417 ms Normal sinus rhythm Right axis deviation RSR' or QR pattern in V1 suggests right ventricular conduction delay Pulmonary disease pattern Abnormal ECG When compared with ECG of 02-MAY-2023 14:25, No significant change was found Referred By: Izzy Solomon Electronically Signed By:PARKER SCHWAB MD
[2023-05-02 15:47] VITALS: BP 115/63; PULSE 64; RESP 16; TEMP 36.6; O2SAT 97
--- NOTE | 2023-05-02 15:48 | MHC.EDTECH ---
This pct assumed care of pt at 1500 ,vitals taken and repeated ekg taken ,pt was hooked up to pathologist assistant by this pct ,pt comfortable ,no apparent distress noted at this time .
[2023-05-02 18:00] VITALS: BP 113/71; PULSE 64; RESP 16; TEMP 36.2; O2SAT 98
--- NOTE | 2023-05-02 18:00 | PC.NURSE ---
tech bedside obtaining repeat troponin.
--- NOTE | 2023-05-02 18:09 | MHC.EDTECH ---
1800 ROUNDING DONE ,VITALS TAKEN AND REPEATED TROP DRAWN AND SENT TO LAB .
[2023-05-02 18:31] LABS: Troponin-I High Sensitivity < 2.7 ng/L (<3.5-17.0)
[2023-05-02 19:43] VITALS: BP 110/70; PULSE 60; RESP 16; TEMP 36.3; O2SAT 97
== END 2023-05-02 19:45 | disposition home or self-care (01) ==
PROVIDERS: Registered Nurse Emergency; Emergency Provider Emergency Medicine; PCP Internal Medicine
DX: R07.89 Other chest pain (principal); F17.210 Nicotine dependence, cigarettes, uncomplicated; Z71.6 Tobacco abuse counseling; Z79.899 Other long term (current) drug therapy
CPT/HCPCS: 36415; 71046; 80053; 84484; 85025; 85610; 93005; 99283; 99285

== ENCOUNTER 2023-05-16 12:48 | Outpatient (AMB) | payer MEDICARE, MEDICAID, SELFPAY ==
--- NOTE | 2023-05-16 12:57 | A.OFFVIS_ITS ---
Intake Vital Signs 05/16/23 12:58 Height 5 ft 8 in Weight 165 lb 5.547 oz BMI 25.1 BP 100/60 Blood Pressure Location Lt brachial Position Sitting Pulse 98 Pulse Source Pulse Oximeter Intake Visit Reasons: [facility] [place] ED fu/chest pain/ abn ekg Intake Note: Ed f/up patient it ok today Municipal Firefighter Required: No Accompanied by: Self / Same As Patient Allergies No Known Drug Allergies [NO KNOWN DRUG ALLERGIES] Allergy (Unknown, Verified 05/16/23 13:02) NONE HPI HPI Comments History of Present Illness Details 68-year-old female is coming in today fo r her first visit after being seen in the Emergency Room for chest pain and EKG changes. Her EKG showed NSR with right [place] Deviation and Incomplete right bundle branch block, with a pulmonary disease pattern. Lab work in the emergency room had negative troponins. She has a medical history of COPD, tobacco use, hypercholesterol and hypothyroidism. She reports no family history of cardiac issues. Patient denies any chest pain now, nausea, vomiting, diaphoresis, swelling, dizziness, or headaches. She endoreses shortness of breathin with exertion that she accounts to being a long time smoker. Chest pain has been on and off for about a month, lasting seconds, and sharp/pressure like, occurring with exertion. She has been trying to quit smoking. [facility] Medical History Other specified hypothyroidism Surgical History No pertinent past surgical history Family History Father No problems noted. Mother No problems noted. Brother No problems noted. Brother Substance use disorder Brother Fibromyalgia Daughter No problems noted. Sister No problems noted. Sister No problems noted. Sister No problems noted. Sister No problems noted. Sister No problems noted. Sister No problems noted. Sister No problems noted. Social History Housing: Assisted Living Facility Alcohol intake: current Alcohol intake frequency: holidays/special occasions only Patient Tobacco Use Status: Current everyday Tobacco user Cigarettes Per Day: 10 e-Cigarette/Vaping Use: Never Used Substance Use Type: Marijuana service: No Current occupational status: retired Cognitive needs: No Hearing needs: No Vision needs: Yes Review of Systems Const Reports chills, Reports fatigue, Reports fever(s), Reports frequent falls, Reports weakness, Reports weight gain and Reports weight loss ENT Reports dizziness Card Reports chest pain, Reports leg edema, Reports lightheadedness, Reports palpitations, Reports dyspnea, Reports dyspnea on exertion and Reports orthopnea Resp Reports cough, Reports dyspnea and Reports dyspnea on exertion GI Reports bloating and Reports change in bowel habits Musc Reports muscle weakness, Reports numbness and Reports tingling Neuro Reports dizziness, Reports frequent falls, Reports numbness, Reports tingling and Reports weakness Endo Reports fatigue and Reports palpitations Physical Exam Const General: healthy appearing and no acute distress Orientation/consciousness: patient oriented x3 HEENT Head: Yes normal to inspection Eyes General: appearance normal, both eyes and all related structures Neck Neck: Yes normal visual inspection Chest Chest palpation & inspection: normal inspection of the chest Resp Effort & Inspection: normal respiratory effort Auscultation: clear to auscultation bilaterally Cardio Jugular venous distension: no JVD Palpation: normal PMI Rate: regular rate Rhythm: regular rhythm Heart sounds: S1 normal heart sound present, S2 normal heart sound present, no click, no gallops, no murmurs and no rubs GI Inspection: Yes normal to inspection Palpation (GI): Soft to palpation Skin General skin exam: no rashes or lesions noted Neuro General: patient oriented x3 Extrem General: Yes normal to inspection Psych Appearance: grossly normal Assessment & Plan Assessment & Plan (1) Right bundle branch block: Code(s): I45.10 - Unspecified right bundle-branch block (2) Chest pain: Code(s): R07.9 - Chest pain, unspecified (3) Shortness of breath: Code(s): R06.02 - Shortness of breath Plan Strongly encouraged to quit smoking. Report any new or worsening symptoms. Will get echocardiogram and exercise stress test with nuclear imaging to assess for ischemia. Can switch to Lexiscan if patient feels she cannot complete exercise day of these. Will have her return to the office in 6-[address] Lanier. Emergency care for any new or worsening chest pain. Follow-up with pulmonary as planned. Orders: Orders NM cardiolite stress test Today I45.10 - Unspecified right bundle-branch block, R06.02 - Shortness of breath, R07.9 - Chest pain, unspecified CA echo transthoracic complete Today I45.10 - Unspecified right bundle-branch block, R06.02 - Shortness of breath, R07.9 - Chest pain, unspecified CA stress test Today I45.10 - Unspecified right bundle-branch block, R06.02 - Shortness of breath, R07.9 - Chest pain, unspecified Coding Level of Care Code New Pt Level 3 (47349) Diagnoses Right bundle branch block I45.10 Chest pain R07.9 Shortness of breath R06.02
[2023-05-16 12:58] VITALS: BP 100/60; PULSE 98; BMI 25.1
== END 2023-05-16 13:27 | disposition home or self-care (01) ==
PROVIDERS: PCP Internal Medicine; Visit Provider Nurse Practitioner
DX: I45.10 Unspecified right bundle-branch block (principal); R07.9 Chest pain, unspecified; R06.02 Shortness of breath
CPT/HCPCS: 99203

== ENCOUNTER → 2023-05-16 12:48 | Outpatient (BNVA) | payer MEDICARE, MEDICAID, SELFPAY | PROVIDERS: PCP Internal Medicine; Visit Provider Nurse Practitioner | DX: I45.10 Unspecified right bundle-branch block (principal); R07.9 Chest pain, unspecified; R06.02 Shortness of breath | CPT/HCPCS: 99202 ==

== ENCOUNTER 2023-05-19 09:42 | Outpatient (AMB) | payer MEDICARE, MEDICAID, SELFPAY ==
[2023-05-19 10:23] VITALS: BP 104/68; PULSE 83; O2SAT 97; BMI 18.2
--- NOTE | 2023-05-19 10:23 | MHC.OFFVIS ---
Intake Vital Signs 05/19/23 10:23 Height 5 ft 8 in Weight 120 lb BMI 18.2 BP 104/68 Blood Pressure Location Lt brachial Position Sitting Pulse 83 Pulse Source Pulse Oximeter Pulse Oximetry (%) 97 Oxygen Delivery Method Room Air Intake Visit Reasons: COPD Intake Note: pt is here as a new patient for copd, pt has shortness of breath, coughing and wheezing. Production Control Specialist Required: No Allergies No Known Drug Allergies [NO KNOWN DRUG ALLERGIES] Allergy (Unknown, Verified 05/19/23 12:01) NONE Medication List - Last Reconciled 05/19/23 by Robyn Newsome MD levothyroxine 50 mcg PO DAILY 90 days simvastatin 20 mg PO BEDTIME 90 days valacyclovir 1,000 mg PO DAILY PRN Do you need a note to return to daycare/school/sports/work: No HPI COPD HPI Details This 68 years old very pleasant lady is being seen for the 1st time, for pulmonary evaluation and followups. SHE HAS HISTORY OF SMOKING 1 PACK OF CIGARETTES A DAY FOR THE LAST 52 YEARS, STARTING AT AGE 16. NOW SHE HAS JOINED A QUIT SMOKING PROGRAM AND JUST RECEIVED NICOTINE PATCHES WHICH SHE WILL START USING. SMOKING IS DOWN TO HALF PACK A DAY. SHE CLAIMS THAT SHE STARTED HAVING SHORTNESS OF BREATH ON EXERTION ABOUT 2 YEARS AGO. SHE [address]ES ON [address] AND USES [employer] TO GO TO HER APARTMENT. HOWEVER WHEN SHE COMES DOWN BY STAIRS SHE DOES GET SOME SHORTNESS OF BREATH. SHE IS ALSO HAVING INCREASED FREQUENCY OF COUGH BUT WITHOUT EXPECTORATION. SHE DENIES ANY ATTACKS OF PERSISTENT COUGH OR WHEEZING. HAD A PULMONARY FUNCTION TEST RECENTLY WHICH WILL BE DESCRIBED BELOW PATIENT IS NOT INTERESTED IN USING ANY INHALERS. SHE HAS NOT BEEN CHECKED FOR LUNG CANCER. [facility] Medical History (Updated 05/19/23 @ 12:18 by Robyn Newsome MD) History of smoking at least 1 pack per day for at least 30 years Other specified hypothyroidism Surgical History No pertinent past surgical history Family History Father No problems noted. Mother No problems noted. Brother No problems noted. Brother Substance use disorder Brother Fibromyalgia Daughter No problems noted. Sister No problems noted. Sister No problems noted. Sister No problems noted. Sister No problems noted. Sister No problems noted. Sister No problems noted. Sister No problems noted. Social History Housing: Assisted Living Facility Alcohol intake: current Alcohol intake frequency: holidays/special occasions only Patient Tobacco Use Status: Current everyday Tobacco user Cigarettes Per Day: 10 e-Cigarette/Vaping Use: Never Used Substance Use Type: Marijuana service: No Current occupational status: retired Cognitive needs: No Hearing needs: No Vision needs: Yes Review of Systems Const All systems reviewed & are unremarkable except as noted in HPI and below Eyes Reports no additional complaints ENT Reports no additional complaints Card Reports chest pain (Occasional pressure-like feeling in mid chest, noncardiac), Denies syncope, Denies irregular heart rhythm and Denies leg edema Resp Reports as per HPI GI Reports no additional complaints Reports no additional complaints Musc Reports no additional complaints Skin/Breast Reports system reviewed and no additional complaints, except as documented Neuro Reports no additional complaints and Denies syncope Psych Reports no additional complaints Endo Reports no additional complaints Aller/Immun Reports no additional complaints Physical Exam Vital Signs: Last Vital Signs Pulse 83 05/19/23 10:23 BP 104/68 05/19/23 10:23 Pulse Ox 97 05/19/23 10:23 Oxygen Delivery Method Room Air 05/19/23 10:23 BMI result Body Mass Index 18.2 Const General: healthy appearing (Of a thin build ), comfortable, no acute distress, alert and awake Orientation/consciousness: patient oriented x3 HEENT Head: Yes normal to inspection General nose exam: No nasal polyps present and No nasal discharge present Face and sinus: Yes sinuses nontender Mouth: oropharynx normal Throat: Yes posterior oropharynx normal and Yes other (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 On both sides Breath sounds are slightly distant. With prolonged expiratory phase No wheezes rhonchi or crepitations are heard. Cardio Palpation: normal PMI Rate: regular rate Rhythm: regular rhythm Heart sounds: no gallops and no murmurs GI Palpation (GI): Soft to palpation, nontender, No hepatosplenomegaly present and no masses Auscultation: normal bowel sounds Back/Spine/Pelvis Thoracic/Lumbar Spine: thoracic and lumbar spine normal to inspection Skin General skin exam: no rashes or lesions noted Neuro General: patient oriented x3 and no focal motor deficits Cranial nerves: Yes CN's II-XII intact bilaterally Extrem General: Yes normal to inspection, Yes no clubbing, cyanosis or edema and Yes no calf tenderness Psych Appearance: grossly normal and well kempt Speech and movement: Normal speech and movement present Results Reviewed Results Reviewed: PULMONARY FUNCTION TEST ON 12/08/2020 MODERATE DEGREE OF OBSTRUCTIVE AIRWAY DISORDER WITHOUT ANY RESPONSE TO BDs . INCREASE DID TOTAL LUNG CAPACITY CONSISTENT WITH HYPERINFLATION. INCREASE RESIDUAL. VOLUME IS CONSISTENT WITH AIR TRAPPING SLIGHT DECREASE IN DLCO C/W PULMONARY EMPHYSEMA. CHEST X-RAY OF 05/02/2023 NO ACUTE DISEASE BUT THERE IS HYPERINFLATION OF THE LUNGS CONSISTENT WITH EMPHYSEMA Assessment & Plan Assessment & Plan (1) History of smoking at least 1 pack per day for at least 30 years: Comment: FIFTY-TWO YEARS HISTORY OF SMOKING 1 PACK A DAY, NOW CUT DOWN TO HALF PACK A DAY. PATIENT IS ON QUIT SMOKING PROGRAM. ALSO REFERRED FOR ANNUAL LUNG SCREENING PROGRAM. Code(s): Z87.891 - Personal history of nicotine dependence Plan: COUNSELED TO QUIT SMOKING COMPLETELY (2) COPD, moderate: Comment: PER PULMONARY FUNCTION TEST IN 2020 SHE DOES HAVE MODERATELY SEVERE OBSTRUCTIVE AIRWAY DISORDER, . SECONDARY TO PULMONARY EMPHYSEMA EXPLAINED TO THE PATIENT. 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 INHALER AT THIS TIME Orders: Referrals Thoracic Surgery Referral J44.9 - Chronic obstructive pulmonary disease, unspecified, Z87.891 - Personal history of nicotine dependence Medications: Changed From valacyclovir 1,000 mg PO DAILY 30 days 30 tabs 0RF To valacyclovir 1,000 mg PO DAILY PRN Coding Level of Care Code New Pt Level 4 (69862) Diagnoses History of smoking at least 1 pack per day for at least 30 years Z87.891 COPD, moderate J44.9
== END 2023-05-19 10:52 | disposition home or self-care (01) ==
PROVIDERS: PCP Internal Medicine; Referring Provider Internal Medicine; Visit Provider Internal Medicine
DX: Z87.891 Personal history of nicotine dependence (principal); J44.9 Chronic obstructive pulmonary disease, unspecified
CPT/HCPCS: 99204

== ENCOUNTER → 2023-05-19 09:42 | Outpatient (BNVA) | payer MEDICARE, MEDICAID, SELFPAY | PROVIDERS: PCP Internal Medicine; Referring Provider Internal Medicine; Visit Provider Internal Medicine | DX: J44.9 Chronic obstructive pulmonary disease, unspecified (principal); Z87.891 Personal history of nicotine dependence | CPT/HCPCS: 99202 ==

== ENCOUNTER → 2023-06-12 10:43 | Outpatient (REF) | payer MEDICARE, MEDICAID, SELFPAY ==
--- NOTE | 2023-06-12 10:47 | CA_ITS ---
Transthoracic Echocardiogram Patient (Last, First, Middle): Olga Antoine, Gender: Female Date of : 1955 Age: 68 Procedure Date: 06/12/2023 Procedure Type: Transthoracic Echocardiogram Location: OP Height: 172.72 cm Weight: 55.99 kg BSA: 1.66 m2 Heart Rate: bpm BP: 110 / 68 mmHg Frame Feeder: TO Referring MD: Debbie Conroy VICE PRESIDENT QUALITY ASSURANCE Symptoms: R07.9 - Chest pain, unspecified Study Quality: Fair/Contrast ECG Rhythm: Sinus Conclusions: - The left ventricular systolic function is normal. The calculated ejection fraction is 64% by biplane method. - No obvious valvular pathology seen on this study. Findings Procedure Information Contrast agent, definity, is being given per protocol without apparent complications. The study quality is limited by patients body habitus. Left Ventricle Normal left ventricular cavity size. There is normal left ventricular wall thickness. The left ventricular systolic function is normal. The calculated ejection fraction is 64% by biplane method. There is no evidence of regional wall motion abnormalities. Diastolic function is normal for age. Right Ventricle Normal right ventricular cavity size and systolic function. Atria Both atria are normal in size. Aortic Valve There is a normal trileaflet aortic valve. There is no aortic valve stenosis. There is no aortic valve regurgitation. Mitral Valve The mitral valve appears normal. There is trace mitral valve regurgitation. There is no mitral valve stenosis. Pulmonic Valve The pulmonic valve is likely normal. Tricuspid Valve Normal tricuspid valve structure. There is trace tricuspid valve regurgitation. There is no evidence of pulmonary hypertension. Great Vessels The asc aorta is normal in size. Venous The inferior vena cava is mildly dilated and collapses greater than 50% with inspiration. Pericardium/Pleural There is no evidence of pericardial effusion. Prior Study Comparison No prior study available for comparison. Recommendations, Care & Conclusions No obvious valvular pathology seen on this study. Measurements 2D Linear Measurements IVSd: 0.81 0.6-0.9/0.6-1.0 cm LVIDd: 4.18 3.9-5.3/4.2-5.9 cm LVIDd Index: 2.52 2.4-3.2/2.2-3.1 cm/m2 LVIDs: 2.95 2.0-3.6 cm LVPWd: 0.71 0.7-1.1 cm LA Diam: 3.00 2.7-3.8/3.0-4.0 cm LAIDs Index: 1.81 1.5-2.3 cm/m2 LV Mass: 116.64 67-162/88-224 g LV Mass Index: 70.27 43-95/49-115 g/m2 LVOT Diam: 2.00 3.0+(-)1.3 cm 2D Systolic Function EF 4C: 62.10 >55% EF 2C: 65.90 >55% EF BiP: 63.70 >55% Mitral Valve MV Pk E: 0.89 MV PK A: 0.63 MV Decel Time: 211.00 E/A: 1.40 E'Lateral: 7.07 E'Medial: 6.96 E/E' Med: 12.80 E/E' Lat: 12.60 PHT: 62.00 MVA PHT: 3.55 Decel Yoakum: 4.23 Aortic Valve AoV Pk Lucio: 0.99 AoV Mn Lucio: 0.62 AoV VTI: 0.23 AoV Pk Grad: 4.00 Aov Mn Grad: 2.00 BRIANNA Cont.VTI: 2.38 LVOT LVOT Pk Lucio: 0.73 LVOT Mn Lucio: 0.47 LVOT VTI: 0.18 LVOT Pk Grad: 2.00 LVOT Mn Grad: 1.00 LVOT Diam: 2.00 LVOT Area: 3.14 Diastolic Function MV Pk E: 0.89 MV Pk A: 0.63 E/A: 1.40 E'Medial: 6.96 E/E' Med: 12.80 E' Laterial: 7.07 E/E' Lat: 12.60 Right Ventricle TAPSE (mm): 21.50 TVS' Lucio: 9.57 Tricuspid Valve TR Pk Lucio: 2.13 TR Pk Grad: 18.00 RA Press: 8.00 RVSP: 26.00 Great Vessels Aorta Sinus of Valsalva: 3.24 2.0-3.5 cm Ao Asc: 2.90 2.1-3.4 cm Updated in Other Vendor System with Status of Final Fortino Lanier MD electronically signed on 06/14/2023 11:53:02 AM with status of Final
== END ==
LOC: HO.CARD 10:43
PROVIDERS: PCP Internal Medicine; Visit Provider Nurse Practitioner
DX: R07.9 Chest pain, unspecified (principal); I45.10 Unspecified right bundle-branch block; R06.02 Shortness of breath
CPT/HCPCS: 93306; Q9957

== ENCOUNTER → 2023-06-12 10:47 | Outpatient (BNV) | payer MEDICARE, MEDICAID, SELFPAY | PROVIDERS: PCP Internal Medicine; Visit Provider Internal Medicine | DX: R07.9 Chest pain, unspecified (principal) | CPT/HCPCS: 93306 ==

== ENCOUNTER 2023-11-04 11:33 | Outpatient (AMB) | payer MEDICARE, MEDICAID, SELFPAY ==
[2023-11-04 11:35] VITALS: BP 134/72; PULSE 87; O2SAT 97; BMI 18.0
--- NOTE | 2023-11-04 11:35 | MHC.PC.OV ---
Vital Signs 11/04/23 11:35 Height 5 ft 8 in Weight 118 lb 6 oz BMI 18.0 BP 134/72 Blood Pressure Location Lt brachial Position Sitting Pulse 87 Pulse Source Pulse Oximeter Pulse Oximetry (%) 97 Oxygen Delivery Method Room Air Intake Visit Reasons: Annual PE Allergies No Known Drug Allergies [NO KNOWN DRUG ALLERGIES] Allergy (Unknown, Verified 11/04/23 11:41) NONE Medication List - Last Reconciled 11/04/23 by Phill Bird MD levothyroxine 50 mcg PO DAILY 90 days simvastatin 20 mg PO BEDTIME 90 days valacyclovir 500 mg PO DAILY PRN Tobacco use date assessed: 11/04/23 Fall risk assessment: No Falls in past year Last assessed Fall Risk: 11/04/23 Dental Screening Dental Screen Date: 05/21/23 Did you have a dental visit in the last 12 months?: Yes Did you have a dental problem in the last 6 months where you did not have access to dental care?: No Was dental information given to patient?: Patient has dentist HPI Annual PE HPI Details Patient is a 68-year-old female came in today for a physical examination , patient have a history of hypothyroidism, lipid disorder, herpes genitalia X Marijuana smoker, gait disturbance, COPD, tobacco abuse for years. She does have difficulty breathing she is established with [facility] I placed a referral for patient to see Gastroenterology for colonoscopy last physical exam She had appointment in February and patient did not pursue that Patient verbalize that she will me know and she wants to do it I also placed referral for OBGYN visit and order for mammogram which is not done Patient says that she will let me know when she is ready for these tests She has stopped using marijuana Breast exam declined today Patient also failed romberg and tandem walk Lab order placed to be done today [facility] Medical History History of smoking at least 1 pack per day for at least 30 years Other specified hypothyroidism Surgical History No pertinent past surgical history Family History Father No problems noted. Mother No problems noted. Brother No problems noted. Brother Substance use disorder Brother Fibromyalgia Daughter No problems noted. Sister No problems noted. Sister No problems noted. Sister No problems noted. Sister No problems noted. Sister No problems noted. Sister No problems noted. Sister No problems noted. Social History Housing: Assisted Living Facility Alcohol intake: current Alcohol intake frequency: holidays/special occasions only Patient Tobacco Use Status: Current everyday Tobacco user Cigarettes Per Day: 10 e-Cigarette/Vaping Use: Never Used Substance Use Type: Marijuana service: No Current occupational status: retired Cognitive needs: No Hearing needs: No Vision needs: Yes Questionnaire PHQ-9 Over the last 2 weeks, how often have you been bothered by any of the following problems? 32425 - PHQ-9 Billing: Patient declined-do not bill Source: Developed by Drs. Lester Mora, Dulce Byers, Mina Buckley and colleagues, with an educational iglesia from [employer]. Thrive Questionnaire Date Thrive assessed: 04/29/23 AUDIT C Alcohol Use Questionnaire (AUDIT-C) 1. How often do you have a drink containing alcohol?: Never 3. How often do you have six or more drinks on one occasion?: Never Total Score: 0 Score Reviewed/Action Taken: Yes CHELITA-7 AMB Questionnaire CHELITA-7 Date CHELITA - 7 assessed: 04/29/23 Source: Developed by Drs. Lester Mora, Dulce Byers, Mina Buckley and colleagues, with an educational iglesia from [employer]. CHELITA-7 Assessment Billing CHELITA-7 Assessment Tool: pt declined-do not bill Review of Systems Const Denies chills, Denies fever(s) and Denies headache(s) Eyes Denies blurry vision ENT Denies headache(s), Denies nasal discharge, Denies nasal obstruction, Denies odynophagia and Denies sinus pain Card Denies chest pain at rest and Denies chest pain with activity Resp Denies hemoptysis GI Denies diarrhea, Denies odynophagia, Denies vomiting and Denies hematemesis Reports as per HPI Musc Denies abnormal gait Skin/Breast Reports as per HPI Neuro Denies Neuro-related abnormal movements, Denies Abnormal speech present, Denies abnormal gait and Denies headache(s) Psych Denies mood swings and Denies paranoia Endo Reports as per HPI Madi/Lymph Reports as per HPI Aller/Immun Reports as per HPI Physical exam (Primary Care) Vital Signs: Last Vital Signs Pulse 87 11/04/23 11:35 BP 134/72 11/04/23 11:35 Pulse Ox 97 11/04/23 11:35 Oxygen Delivery Method Room Air 11/04/23 11:35 BMI result Body Mass Index 18.0 Tobacco/Smoking Status: Tobacco use Status Tobacco use date assessed 11/04/23 11/04/23 11:42 Patient Tobacco Use Status Current everyday Tobacco 11/04/23 11:38 e-Cigarette/Vaping Use Never Used 11/04/23 11:38 Thrive Assessment: Date of Thrive Assessment Date Thrive assessed 04/29/23 11/04/23 11:38 Const General: cooperative, comfortable and no acute distress Orientation/consciousness: patient oriented x3 HENMT Head: Yes normocephalic and Yes atraumatic Eyes General: appearance normal, both eyes and all related structures Pupils: Equal, round and reactive pupils present EOM: EOMs intact bilaterally Neck Neck: Yes supple and No lymphadenopathy Thyroid: Thyroid normal Lymphatic: no lymphadenopathy noted Chest Breast/axilla palpation: normal palpation of the breasts Resp Effort & Inspection: normal respiratory effort and able to speak in complete sentences Auscultation: clear to auscultation bilaterally Cardio Heart sounds: S1 normal heart sound present and S2 normal heart sound present GI Palpation (GI): Soft to palpation and nontender Auscultation: normal bowel sounds General: Yes no CVA tenderness Back/Spine/Pelvis Back: no CVA tenderness Skin General skin exam: elasticity normal and turgor normal Neuro General: patient oriented x3 and gait normal Cranial nerves: Yes Equal, round and reactive pupils present Speech: No Abnormal speech present Coordination: Romberg test negative Extrem General: Yes normal exam except as noted and No edema Assessment and Plan Assessment & Plan (1) Encounter for general adult medical examination with abnormal findings: Code(s): Z00.01 - Encounter for general adult medical examination with abnormal findings (2) COPD, moderate: Comment: PER PULMONARY FUNCTION TEST IN 2020 SHE DOES HAVE MODERATELY SEVERE OBSTRUCTIVE AIRWAY DISORDER, . SECONDARY TO PULMONARY EMPHYSEMA EXPLAINED TO THE PATIENT. Code(s): J44.9 - Chronic obstructive pulmonary disease, unspecified (3) Tobacco abuse: Code(s): Z72.0 - Tobacco use (4) Other specified hypothyroidism: Code(s): E03.8 - Other specified hypothyroidism (5) Lipid disorder: Code(s): E78.9 - Disorder of lipoprotein metabolism, unspecified (6) Anxiety, generalized: Code(s): F41.1 - Generalized anxiety disorder (7) Major depression, recurrent: Code(s): F33.9 - Major depressive disorder, recurrent, unspecified Qualifiers: Active/Remission status: currently active Major depression episode severity: moderate Qualified Code(s): F33.1 - Major depressive disorder, recurrent, moderate Plan Patient is a 68-year-old female came in today for a physical examination , patient have a history of hypothyroidism, lipid disorder, herpes genitalia X Marijuana smoker, gait disturbance, COPD, tobacco abuse for years. She does have difficulty breathing she has seen Dr. Newsome in the past, I have sent a message to their office to book a follow-up appointment I placed a referral for patient to see Gastroenterology for colonoscopy last physical exam She had appointment in February and patient did not pursue that Patient verbalize that she will me know and she wants to do it I also placed referral for OBGYN visit and order for mammogram which is not done Patient says that she will let me know when she is ready for these tests She has stopped using marijuana Breast exam declined today Patient also failed romberg and tandem walk Lab order placed to be done today 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 Orders: Orders Vitamin D 25-OH (D2 and D3) Today E03.8 - Other specified hypothyroidism, E78.9 - Disorder of lipoprotein metabolism, unspecified, F33.1 - Major depressive disorder, recurrent, moderate, F41.1 - Generalized anxiety disorder, J44.9 - Chronic obstructive pulmonary disease, unspecified, Z00.01 - Encounter for general adult medical examination with abnormal findings, Z72.0 - Tobacco use Complete Blood Count Auto Diff Today E03.8 - Other specified hypothyroidism, E78.9 - Disorder of lipoprotein metabolism, unspecified, F33.1 - Major depressive disorder, recurrent, moderate, F41.1 - Generalized anxiety disorder, J44.9 - Chronic obstructive pulmonary disease, unspecified, Z00.01 - Encounter for general adult medical examination with abnormal findings, Z72.0 - Tobacco use LDL Cholesterol Direct Today E03.8 - Other specified hypothyroidism, E78.9 - Disorder of lipoprotein metabolism, unspecified, F33.1 - Major depressive disorder, recurrent, moderate, F41.1 - Generalized anxiety disorder, J44.9 - Chronic obstructive pulmonary disease, unspecified, Z00.01 - Encounter for general adult medical examination with abnormal findings, Z72.0 - Tobacco use TSH reflex Free T4 Today E03.8 - Other specified hypothyroidism, E78.9 - Disorder of lipoprotein metabolism, unspecified, F33.1 - Major depressive disorder, recurrent, moderate, F41.1 - Generalized anxiety disorder, J44.9 - Chronic obstructive pulmonary disease, unspecified, Z00.01 - Encounter for general adult medical examination with abnormal findings, Z72.0 - Tobacco use Comprehensive Met. Panel Today E03.8 - Other specified hypothyroidism, E78.9 - Disorder of lipoprotein metabolism, unspecified, F33.1 - Major depressive disorder, recurrent, moderate, F41.1 - Generalized anxiety disorder, J44.9 - Chronic obstructive pulmonary disease, unspecified, Z00.01 - Encounter for general adult medical examination with abnormal findings, Z72.0 - Tobacco use Coding Level of Care Code Est Pt Prev Care >65y(76799) Diagnoses Encounter for general adult medical examination with abnormal findings Z00.01 COPD, moderate J44.9 Tobacco abuse Z72.0 Other specified hypothyroidism E03.8 Lipid disorder E78.9 Anxiety, generalized F41.1 Moderate episode of recurrent major depressive disorder F33.1 Active/Remission status: currently active Major depression episode severity: moderate
== END 2023-11-04 11:57 | disposition home or self-care (01) ==
PROVIDERS: Visit Provider Internal Medicine
DX: Z00.00 Encounter for general adult medical examination without abnormal findings (principal); F33.1 Major depressive disorder, recurrent, moderate; J44.9 Chronic obstructive pulmonary disease, unspecified; Z72.0 Tobacco use; E78.9 Disorder of lipoprotein metabolism, unspecified; E03.8 Other specified hypothyroidism; F41.1 Generalized anxiety disorder
CPT/HCPCS: 99397

== ENCOUNTER 2023-11-04 11:59 | Outpatient (REF) | payer MEDICARE, MEDICAID, SELFPAY ==
[2023-11-04 13:09] LABS: MANUAL DIFF FLAG NO
[2023-11-04 13:28] LABS: Basophils Absolute Auto 0.1 X10*3/uL (0.0-0.2); Basophils Percent Auto 0.7 % (0-2); Eosinophils Absolute Auto 0.2 X10*3/uL (0.0-0.4); Eosinophils Percent Auto 2.3 % (0-4); Hematocrit 41.7 % (37.0-47.0); Hemoglobin 13.5 g/dl (12.0-16.0); Imm Gran Abs Auto 0.02 X10*3/uL (0.00-0.03); Imm Gran Pct Auto 0.2 % (0.0-0.4); Lymphocytes Absolute Auto 2.9 X10*3/uL (1.2-4.9); Lymphocytes Percent Auto 34.2 % (20-40); Mean Corpuscular HGB Conc 32.4 g/dl (31.0-35.0); Mean Corpuscular Hemoglobin 29.7 pg (27.0-33.0); Mean Corpuscular Volume 91.6 fL (80.0-98.0); Mean Platelet Volume 9.2 fL (9.4-12.3); Monocytes Absolute Auto 0.8 X10*3/uL (0.1-1.2); Monocytes Percent Auto 9.4 % (2-11); Neutrophils Absolute Auto 4.5 x10*3/uL (2.0-8.3); Neutrophils Percent Auto 53.2 % (45-73); Platelet Count 344 X10*3/uL (160-400); Red Blood Count 4.55 X10*6/uL (4.20-5.50); Red Cell Distribution Width 13.8 % (11.0-16.0); White Blood Count 8.4 X10*3/uL (4.8-10.8)
[2023-11-04 14:07] LABS: Alanine Aminotransferase 30 U/L (0-31); Albumin Level 4.8 g/dL (3.5-5.0); Alkaline Phosphatase 60 U/L (39-117); Anion Gap 16 (12-20); Aspartate Amino Transferase 29 U/L (5-31); Bilirubin Total 0.5 mg/dL (0.0-1.0); Blood Urea Nitrogen 14 mg/dL (9-16); Calcium 10.4 mg/dL (8.4-10.2); Carbon Dioxide 25 mmol/L (22-29); Chloride 102 mmol/L (96-108); Estimated Glomerular Filt Rate > 60; Glucose Random 94 mg/dL (60-115); Potassium 3.9 mmol/L (3.3-5.1); Sodium 139 mmol/L (135-145); Total Protein 8.1 g/dL (6.5-8.0)
[2023-11-04 14:21] LABS: TSH reflex Free T4 1.33 uIU/mL (0.32-4.0)
[2023-11-05 11:48] LABS: LDL Cholesterol Direct 114 mg/dL (<100)
[2023-11-08 14:24] LABS: Vitamin D 25-OH, D2 <4 ng/mL; Vitamin D 25-OH, D3 45 ng/mL; Vitamin D 25-OH, Total 45 ng/mL (30-100)
== END 2023-11-04 12:00 | disposition home or self-care (01) ==
LOC: HO.HMGCLDS 11:59
PROVIDERS: PCP Internal Medicine; Visit Provider Internal Medicine
DX: Z00.01 Encounter for general adult medical examination with abnormal findings (principal); J44.9 Chronic obstructive pulmonary disease, unspecified; Z72.0 Tobacco use; E03.8 Other specified hypothyroidism; E78.9 Disorder of lipoprotein metabolism, unspecified; F41.1 Generalized anxiety disorder; F33.1 Major depressive disorder, recurrent, moderate
CPT/HCPCS: 36415; 80053; 82306; 83721; 84443; 85025

== ENCOUNTER 2023-12-15 14:56 | Outpatient (AMB) | payer MEDICARE, MEDICAID, SELFPAY ==
[2023-12-15 15:21] VITALS: BP 116/70; PULSE 76; TEMP 36.2; O2SAT 98; BMI 17.9
--- NOTE | 2023-12-15 15:21 | AM.OFFWIN_ITS ---
Intake Vital Signs 12/15/23 15:21 Height 5 ft 8 in Weight 118 lb BMI 17.9 BP 116/70 Blood Pressure Location Lt brachial Position Sitting Pulse 76 Pulse Source Pulse Oximeter Temp 97.2 F Temp Source Oral Pulse Oximetry (%) 98 Intake Visit Reasons: EP Red spots on feet Intake Note: pt is here for red spot of feet a little over a week Patient Tobacco Use Status: Current everyday Tobacco user Allergies No Known Drug Allergies [NO KNOWN DRUG ALLERGIES] Allergy (Unknown, Verified 12/15/23 15:22) NONE Do you need a note to return to daycare/school/sports/work: No HPI HPI Comments History of Present Illness Details Patient is a 68-year-old female complaining of 1 week of a rash on her bilateral feet. She states that it has not itchy and she has had no bug bites or fevers. She denies any new shoes/footwear. She states that she just has these red spots and she looked on the Internet and she was concerned that it might be something related to her heart. So she wanted to come in and have it evaluated. [facility] Medical History History of smoking at least 1 pack per day for at least 30 years Other specified hypothyroidism Surgical History No pertinent past surgical history Family History Father No problems noted. Mother No problems noted. Brother No problems noted. Brother Substance use disorder Brother Fibromyalgia Daughter No problems noted. Sister No problems noted. Sister No problems noted. Sister No problems noted. Sister No problems noted. Sister No problems noted. Sister No problems noted. Sister No problems noted. Social History Housing: Assisted Living Facility Alcohol intake: current Alcohol intake frequency: holidays/special occasions only Patient Tobacco Use Status: Current everyday Tobacco user Cigarettes Per Day: 10 e-Cigarette/Vaping Use: Never Used Substance Use Type: Marijuana service: No Current occupational status: retired Cognitive needs: No Hearing needs: No Vision needs: Yes Review of Systems Const All systems reviewed & are unremarkable except as noted in HPI and below Physical Exam Vital Signs: Last Vital Signs Temp 97.2 F 12/15/23 15:21 Pulse 76 12/15/23 15:21 BP 116/70 12/15/23 15:21 Pulse Ox 98 12/15/23 15:21 BMI result Body Mass Index 17.9 Const General: cooperative, healthy appearing, comfortable, no acute distress and well developed Orientation/consciousness: patient oriented x3 Limitations: no limitations Eyes General: appearance normal, both eyes and all related structures Resp Effort & Inspection: normal respiratory effort and able to speak in complete sentences Skin Other: dorsal aspect of bilateral feet have pinpoint, non blanchable, flat areas of petechiae, diffuse. No warmth or other signs of infection noted, no ecchymosis. Neuro General: patient oriented x3 Assessment & Plan Assessment & Plan (1) Petechial rash: Code(s): R23.3 - Spontaneous ecchymoses Plan: Recommended following up with primary care doctor for further/coagulopathy workup if rash persists. Also okay for red flag warning signs and when to go to the emergency department Plan See above Coding Level of Care Code Est Pt Level 3 (88048) Diagnoses Petechial rash R23.3
== END 2023-12-15 16:28 | disposition home or self-care (01) ==
PROVIDERS: PCP Internal Medicine; Visit Provider Physician Assistant
DX: R23.3 Spontaneous ecchymoses (principal)
CPT/HCPCS: 99213

== ENCOUNTER 2024-05-04 09:58 | Outpatient (REF) | payer MEDICARE, MEDICAID, SELFPAY ==
[2024-05-04 13:28] LABS: MANUAL DIFF FLAG NO
[2024-05-04 13:52] LABS: Basophils Absolute Auto 0.1 X10*3/uL (0.0-0.2); Basophils Percent Auto 0.7 % (0-2); Eosinophils Absolute Auto 0.1 X10*3/uL (0.0-0.4); Eosinophils Percent Auto 1.6 % (0-4); Hematocrit 43.2 % (37.0-47.0); Hemoglobin 14.2 g/dl (12.0-16.0); Imm Gran Abs Auto 0.02 X10*3/uL (0.00-0.03); Imm Gran Pct Auto 0.2 % (0.0-0.4); Lymphocytes Absolute Auto 2.9 X10*3/uL (1.2-4.9); Lymphocytes Percent Auto 33.7 % (20-40); Mean Corpuscular HGB Conc 32.9 g/dl (31.0-35.0); Mean Corpuscular Hemoglobin 29.8 pg (27.0-33.0); Mean Corpuscular Volume 90.8 fL (80.0-98.0); Mean Platelet Volume 8.9 fL (9.4-12.3); Monocytes Absolute Auto 0.8 X10*3/uL (0.1-1.2); Monocytes Percent Auto 8.9 % (2-11); Neutrophils Absolute Auto 4.8 x10*3/uL (2.0-8.3); Neutrophils Percent Auto 54.9 % (45-73); Platelet Count 362 X10*3/uL (160-400); Red Blood Count 4.76 X10*6/uL (4.20-5.50); Red Cell Distribution Width 13.2 % (11.0-16.0); White Blood Count 8.7 X10*3/uL (4.8-10.8)
[2024-05-04 14:29] LABS: Alanine Aminotransferase 21 U/L (0-31); Albumin Level 4.7 g/dL (3.5-5.0); Alkaline Phosphatase 63 U/L (39-117); Anion Gap 11 (12-20); Aspartate Amino Transferase 25 U/L (5-31); Bilirubin Total 0.5 mg/dL (0.0-1.0); Blood Urea Nitrogen 8 mg/dL (9-16); Calcium 10.2 mg/dL (8.4-10.2); Carbon Dioxide 26 mmol/L (22-29); Chloride 103 mmol/L (96-108); Estimated Glomerular Filt Rate > 60; Glucose Random 105 mg/dL (60-115); Potassium 3.8 mmol/L (3.3-5.1); Sodium 136 mmol/L (135-145); TSH reflex Free T4 1.09 uIU/mL (0.32-4.0); Total Protein 7.7 g/dL (6.5-8.0)
== END 2024-05-04 09:59 | disposition home or self-care (01) ==
LOC: HO.HMGCLDS 09:58
PROVIDERS: PCP Internal Medicine; Visit Provider Internal Medicine
DX: E78.9 Disorder of lipoprotein metabolism, unspecified (principal); E03.8 Other specified hypothyroidism; J44.9 Chronic obstructive pulmonary disease, unspecified; F17.210 Nicotine dependence, cigarettes, uncomplicated
CPT/HCPCS: 36415; 80053; 84443; 85025; 96127; 99212

== ENCOUNTER 2024-05-04 09:58 | Outpatient (AMB) | payer MEDICARE, MEDICAID, SELFPAY ==
[2024-05-04 10:01] VITALS: BP 132/70; PULSE 99; O2SAT 98; BMI 17.7
--- NOTE | 2024-05-04 10:01 | MHC.PC.OV ---
Vital Signs 05/04/24 10:01 Height 5 ft 8 in Weight 116 lb 6 oz BMI 17.7 BP 132/70 Blood Pressure Location Rt brachial Position Sitting Pulse 99 Pulse Source Pulse Oximeter Pulse Oximetry (%) 98 Oxygen Delivery Method Room Air Intake Visit Reasons: Fri f/ Allergies No Known Drug Allergies [NO KNOWN DRUG ALLERGIES] Allergy (Unknown, Verified 05/04/24 10:01) NONE Medication List - Last Reconciled 05/04/24 by Phill Bird MD levothyroxine 50 mcg PO DAILY 90 days simvastatin 20 mg PO BEDTIME 90 days valacyclovir 500 mg PO DAILY PRN Tobacco use date assessed: 05/04/24 Fall risk assessment: No Falls in past year Last assessed Fall Risk: 05/04/24 Dental Screening Dental Screen Date: 05/04/24 Did you have a dental visit in the last 12 months?: Yes Did you have a dental problem in the last 6 months where you did not have access to dental care?: No Was dental information given to patient?: Patient has dentist HPI Fri f/ HPI Details The patient is a 69-year-old female presenting with a follow-up for chronic conditions including Chronic Obstructive Pulmonary Disease (COPD), for which she reports persistent difficulty breathing. The patient is a heavy smoker, consuming half a pack to a pack of cigarettes daily, which has exacerbated her respiratory symptoms. Her last COPD evaluation was during her previous visit in October this year. She has not used any inhalers recently and reports worsening shortness of breath. Patient does not want to use inhalers. The patient also has a history of hyperlipidemia and is currently on simvastatin 20 mg daily. Her lab results from October this year indicated an LDL level of 114 mg/dL. Additionally, the patient is on levothyroxine 50 micrograms for hypothyroidism. Due for labs The patient also acknowledged the use of marijuana, primarily to sleep. She reports a financial burden from purchasing cigarettes, which her sister, who quit decades ago, does not understand. Vital signs are stable The patient has pre-scheduled a physical examination for October next year. She will have fasting labs before that visit [facility] Medical History Lipid disorder Other specified hypothyroidism Osteoporosis Tubular adenoma of colon COPD, moderate Nicotine dependence, cigarettes, uncomplicated Deviated nasal septum Anxiety, generalized Major depression, recurrent Surgical History History of colonoscopy Family History Father No problems noted. Mother No problems noted. Brother No problems noted. Brother Substance use disorder Brother Fibromyalgia Daughter No problems noted. Sister No problems noted. Sister No problems noted. Sister No problems noted. Sister No problems noted. Sister No problems noted. Sister No problems noted. Sister No problems noted. Social History Housing: Assisted Living Facility Alcohol intake: current Alcohol intake frequency: holidays/special occasions only Patient Tobacco Use Status: Current everyday Tobacco user Cigarettes Per Day: 10 e-Cigarette/Vaping Use: Never Used Substance Use Type: Marijuana service: No Current occupational status: retired Cognitive needs: No Hearing needs: No Vision needs: Yes Questionnaire PHQ-9 Over the last 2 weeks, how often have you been bothered by any of the following problems? 1. Little interest or pleasure in doing things: not at all 2. Feeling down, depressed, or hopeless: several days 3. Trouble falling or staying asleep, or sleeping too much: several days 4. Feeling tired or having little energy: several days 5. Poor appetite or overeating: not at all 6. Feeling bad about yourself - or that you are a failure or have let yourself or your family down: several days 7. Trouble concentrating on things, such as reading the newspaper or watching television: not at all 8. Moving or speaking so slowly that other people could have noticed. Or the opposite - being so fidgety or restless that you have been moving around a lot more than usual: not at all 9. Thoughts that you would be better off or of hurting yourself in some way: not at all Total score: 4 Depression Screening Interpretation: Negative Depression Screening Done: Yes 22223 - PHQ-9 Billing: Yes Source: Developed by Drs. Lester Mora, Dulce Byers, Mina Buckley and colleagues, with an educational iglesia from [employer]. Thrive Questionnaire Date Thrive assessed: 05/04/24 I am a: Patient What is your living situation today?: I have a steady place to live Within the past 12 months, did the food you bought not last and you didn't have the money to get more?: Never true Within the past 12 months, did you worry whether your food would run out before you got money to buy more?: Never true Do you have trouble paying for medicines?: No Do you have trouble getting transportation to medical appointments?: No Do you have trouble paying your heating and electricity bill?: No Do you have trouble taking care of your child, family member or friend?: No Do you have trouble with day-to-day activities such as bathing, preparing meals, shopping, managing finances, etc.?: No Are you currently unemployed and looking for a job?: No Are you interested in more education?: No Please select the resources that you would like help with: None Currently or been in a relationship where the following occur: No concerns reported THRIVE Score: 0 AUDIT C Alcohol Use Questionnaire (AUDIT-C) 1. How often do you have a drink containing alcohol?: Never 3. How often do you have six or more drinks on one occasion?: Never Total Score: 0 Score Reviewed/Action Taken: Yes CHELITA-7 AMB Questionnaire CHELITA-7 Date CHELITA - 7 assessed: 05/04/24 Feeling nervous, anxious, or on edge: 1 = Several days Not being able to stop or control worryin = Several days Worrying too much about different things: 1 = Several days Trouble relaxin = Several days Being so restless that it is hard to sit still: 1 = Several days Becoming easily annoyed or irritable: 1 = Several days Feeling afraid as if something awful might happen: 0 = Not at all Total CHELITA-7 score (0-4 normal; 5-9 mild; 10-14 moderate; 15-21 severe): 6 Source: Developed by Drs. Lester Mora, Dulce Byers, Mina Buckley and colleagues, with an educational iglesia from [employer]. CHELITA-7 Assessment Billing CHELITA-7 Assessment Tool: CHELITA-7 Assessment 50937 Review of Systems Const Denies chills and Denies fever(s) ENT Denies epistaxis and Denies nasal discharge Card Denies chest pain Resp Denies chest congestion, Denies cough and Denies hemoptysis GI Denies diarrhea and Denies nausea Skin/Breast Denies rash Neuro Reports no additional complaints Psych Reports no additional complaints Endo Reports no additional complaints Physical exam (Primary Care) Vital Signs: Last Vital Signs Pulse 99 05/04/24 10:01 BP 132/70 05/04/24 10:01 Pulse Ox 98 05/04/24 10:01 Oxygen Delivery Method Room Air 05/04/24 10:01 BMI result Body Mass Index 17.7 Tobacco/Smoking Status: Tobacco use Status Tobacco use date assessed 05/04/24 05/04/24 10:03 Patient Tobacco Use Status Current everyday Tobacco 05/04/24 10:03 e-Cigarette/Vaping Use Never Used 05/04/24 10:03 PHQ-9: PHQ-9 Score PHQ-9: Total score 4 05/04/24 10:08 Depression Screening Interpretation: Negative Thrive Assessment: Date of Thrive Assessment Date Thrive assessed 05/04/24 05/04/24 10:08 Currently or been in a relationship where the following occur: No concerns reported Const General: cooperative, comfortable and no acute distress Orientation/consciousness: patient oriented x3 HENMT Head: Yes normocephalic Eyes General: appearance normal, both eyes and all related structures Neck Neck: Yes supple Resp Effort & Inspection: normal respiratory effort, no cough and no stridor Cardio Rhythm: regular rhythm Heart sounds: S1 normal heart sound present and S2 normal heart sound present Skin General skin exam: turgor normal Neuro General: patient oriented x3, tone normal and moves all extremities Extrem Right lower extremity: no edema Left lower extremity: no edema Coding Level of Care Code Est Pt Level 4 (63220) Complex EM visit Add On G2211 Diagnoses Lipid disorder E78.9 Other specified hypothyroidism E03.8 COPD, moderate J44.9 Nicotine dependence, cigarettes, uncomplicated F17.210 Additional Codes CHELITA-7 Assessment Billing - CHELITA-7 Assessment Tool: CHELITA-7 Assessment 11614 ([id number]) PHQ-9 - 65718 - PHQ-9 Billing: Yes ([id number]) Assessment & Plan Assessment & Plan (1) Lipid disorder: Code(s): E78.9 - Disorder of lipoprotein metabolism, unspecified Category: Medical (2) Other specified hypothyroidism: Code(s): E03.8 - Other specified hypothyroidism Category: Medical (3) COPD, moderate: Comment: (As per 2020 PFT - Moderatley severe COPD, secondary to pulmonary emphysema) Code(s): J44.9 - Chronic obstructive pulmonary disease, unspecified Category: Medical (4) Nicotine dependence, cigarettes, uncomplicated: Comment: (1ppd x 52yrs, now 1/2ppd) Code(s): F17.210 - Nicotine dependence, cigarettes, uncomplicated Category: Medical Plan The patient is a 69-year-old female presenting with a follow-up for chronic conditions including Chronic Obstructive Pulmonary Disease (COPD), for which she reports persistent difficulty breathing. The patient is a heavy smoker, consuming half a pack to a pack of cigarettes daily, which has exacerbated her respiratory symptoms. Her last COPD evaluation was during her previous visit in October this year. She has not used any inhalers recently and reports worsening shortness of breath. Patient does not want to use inhalers. The patient also has a history of hyperlipidemia and is currently on simvastatin 20 mg daily. Her lab results from October this year indicated an LDL level of 114 mg/dL. Additionally, the patient is on levothyroxine 50 micrograms for hypothyroidism. Due for labs The patient also acknowledged the use of marijuana, primarily to sleep. She reports a financial burden from purchasing cigarettes, which her sister, who quit decades ago, does not understand. Vital signs are stable The patient has pre-scheduled a physical examination for October next year. She will have fasting labs before that visit Orders: Orders Complete Blood Count Auto Diff 5 Months E03.8 - Other specified hypothyroidism, E78.9 - Disorder of lipoprotein metabolism, unspecified, F17.210 - Nicotine dependence, cigarettes, uncomplicated, J44.9 - Chronic obstructive pulmonary disease, unspecified TSH reflex Free T4 5 Months E03.8 - Other specified hypothyroidism, E78.9 - Disorder of lipoprotein metabolism, unspecified, F17.210 - Nicotine dependence, cigarettes, uncomplicated, J44.9 - Chronic obstructive pulmonary disease, unspecified Complete Blood Count Auto Diff Today E03.8 - Other specified hypothyroidism, E78.9 - Disorder of lipoprotein metabolism, unspecified, F17.210 - Nicotine dependence, cigarettes, uncomplicated, J44.9 - Chronic obstructive pulmonary disease, unspecified Comprehensive Met. Panel Today E03.8 - Other specified hypothyroidism, E78.9 - Disorder of lipoprotein metabolism, unspecified, F17.210 - Nicotine dependence, cigarettes, uncomplicated, J44.9 - Chronic obstructive pulmonary disease, unspecified TSH reflex Free T4 Today E03.8 - Other specified hypothyroidism, E78.9 - Disorder of lipoprotein metabolism, unspecified, F17.210 - Nicotine dependence, cigarettes, uncomplicated, J44.9 - Chronic obstructive pulmonary disease, unspecified Comprehensive [place]. Panel Fast 5 Months E03.8 - Other specified hypothyroidism, E78.9 - Disorder of lipoprotein metabolism, unspecified, F17.210 - Nicotine dependence, cigarettes, uncomplicated, J44.9 - Chronic obstructive pulmonary disease, unspecified Lipid Panel 5 Months E03.8 - Other specified hypothyroidism, E78.9 - Disorder of lipoprotein metabolism, unspecified, F17.210 - Nicotine dependence, cigarettes, uncomplicated, J44.9 - Chronic obstructive pulmonary disease, unspecified
== END 2024-05-04 11:09 | disposition home or self-care (01) ==
PROVIDERS: PCP Internal Medicine; Visit Provider Internal Medicine
DX: E78.9 Disorder of lipoprotein metabolism, unspecified (principal); E03.8 Other specified hypothyroidism; J44.9 Chronic obstructive pulmonary disease, unspecified; F17.210 Nicotine dependence, cigarettes, uncomplicated

== ENCOUNTER 2024-10-15 16:03 | Outpatient (AMB) | payer MEDICARE, MEDICAID, SELFPAY ==
--- OUTSIDE RECORDS SUMMARY | 2024-10-15 16:05 | XMS_ITS | Clinical Summary ---
Author Organization [employer] Address [address] [place] [address] Care Team Providers Care Color Buffer Name Role Phone Unavailable Primary Care Provider Unavailabl e Social History Tobacco Use Types Packs/Day Years Used Date Smoking Tobacco: Never Assessed Comments Unknown Sex and Gender Information Value Date Recorded Sex Assigned at Female 04/15/2022 10:15 AM EDT Legal Sex Female 10:15 AM EDT Gender Identity Female 04/15/2022 10:15 AM EDT Sexual Orientation Straight 04/15/2022 10 :15 AM EDT Plan of Treatment Health Maintenance Due Date Last Done Comments CT Colonography 1956 Colonoscopy 1956 Colorectal Cancer Screening 1956 Depression Screening 1956 FIT DNA/Cologuard 1956 FIT 1956 FOBT 1956 Sigmoidoscopy 1956 Alcohol/Substance Use Screening 1968 Tobacco Screening 1968 DTaP/Tdap/Td Vaccines (1 - Tdap) 01/23/1975 Mammogram 1996 Pneumococcal Vaccine: 50+ Ye ars (1 of 1 - PCV) 01/23/2006 Zoster Vaccines (1 of 2) 01/23/2006 COVID-19 Vaccine ( - 2023-2 5 season) 2024 Influenza Vaccine (#1) 2024 RSV Patients and Pa tients Aged 60 years or older (1 - 1-dose 75+ series) 01/23/2031 HIB Vaccines Aged Out No longer eligi ble based on patient's age to complete this topic HPV Vaccines Aged Out No longer eligi ble based on patient's age to complete this topic Hepatitis A Vaccines Aged Out No long er eligible based on patient's age to complete this topic Hepatitis B Vaccines Aged Out No long er eligible based on patient's age to complete this topic IPV Vaccines Aged Out No longer eligi ble based on patient's age to complete this topic Meningococcal Vaccine Aged Out No adisha vivian eligible based on patient's age to complete this topic RSV under 20 months Aged Out No longe r eligible based on patient's age to complete this topic Rotavirus Vaccines Aged Out No longer eligible based on patient's age to complete this topic
--- NOTE | 2024-10-15 16:07 | AM.OFFWIN_ITS ---
Intake Vital Signs 10/15/24 16:08 Weight 115 lb BP 140/80 H Blood Pressure Location Rt brachial Position Sitting Pulse 80 Pulse Source Pulse Oximeter Pulse Oximetry (%) 98 Oxygen Delivery Method Room Air Intake Visit Reasons: EP-chest pain Intake Note: Patient here for chest heaviness that has been present for about 1 week. she states she has been under a lot of stress lately. Patient Tobacco Use Status: Current everyday Tobacco user Allergies No Known Drug Allergies [NO KNOWN DRUG ALLERGIES] Allergy (Unknown, Verified 10/15/24 16:08) NONE Do you need a note to return to daycare/school/sports/work: No HPI HPI Comments History of Present Illness Details History of Present Illness - The patient is a 69-year-old female wi th a past medical history significant for COPD, hypertension, and hyperlipidemia presenting with central chest pressure. Denies hx of GERD or GERD symptoms. - She reports a sensation of heaviness i n the chest for the past week, primarily around the sternum and upper abdomen. - Pain is described as heaviness and pre ssure, denying radiation or sharp characteristics. - She denies NAVA, dizziness, nausea, vomi ting or episodes of sweating but sometim es gets the chills. - recent stresses at home with housing/l andlord, recently quit smoking marijuana and quit cigs 6 months ago. - Last EKG indicated a right bundle bran ch block and T wave inversions in V1 and V2, but all recent evaluations including an emergency department visit did not unveil acute cardiac pathology, she went to [facility] a few weeks later, they ordered a stress test but she did not get the test done because she didn't want it done. - Anxiety episodes have resulted in mome nts of increased heart rate on exertion or stress. Physical Exam General: Cooperative, healthy appearing, comfortable, no acute distress and well developed Orientation: Patient oriented x3 Limitations: No limitations Head: Normal to inspection Ears: Hearing grossly normal bilaterally Nose: Normal External nose present Face and sinus: Normal facial exam Eyes: Appearance normal, both eyes and all related structures Neck: Normal visual inspection and Yes full ROM Respiratory: Normal respiratory effort and able to speak in complete sentences. Clear to auscultation bilaterally Cardiovascular: Regular rate and rhythm. Normal S1 and S2 Skin: No rashes or lesions noted Neuro: Patient oriented x3 Extremities: Normal to inspection [facility] Medical History Lipid disorder Other specified hypothyroidism Osteoporosis Tubular adenoma of colon COPD, moderate Nicotine dependence, cigarettes, uncomplicated Deviated nasal septum Anxiety, generalized Major depression, recurrent Surgical History History of colonoscopy Family History Father No problems noted. Mother No problems noted. Brother No problems noted. Brother Substance use disorder Brother Fibromyalgia Daughter No problems noted. Sister No problems noted. Sister No problems noted. Sister No problems noted. Sister No problems noted. Sister No problems noted. Sister No problems noted. Sister No problems noted. Social History Housing: Assisted Living Facility Alcohol intake: current Alcohol intake frequency: holidays/special occasions only Patient Tobacco Use Status: Current everyday Tobacco user Cigarettes Per Day: 10 e-Cigarette/Vaping Use: Never Used Substance Use Type: Marijuana service: No Current occupational status: retired Cognitive needs: No Hearing needs: No Vision needs: Yes Review of Systems Const All systems reviewed & are unremarkable except as noted in HPI and below Physical Exam Vital Signs: Last Vital Signs Pulse 80 10/15/24 16:08 BP 140/80 H 10/15/24 16:08 Pulse Ox 98 10/15/24 16:08 Oxygen Delivery Method Room Air 10/15/24 16:08 Assessment & Plan Assessment & Plan (1) Chest pressure: Code(s): R07.89 - Other chest pain Plan: VSS, pt well appearing and EKG has no acute changes and similar to prior with RBBB and T wave inversions in V1 and V2. The patient presents with chest pain that may be influenced by her history of COPD, anxiety, and other cardiovascular risk factors. Although she deferred a stress test earlier, I advised reconsideration for full cardiac evaluation with her [employer]. For today, the patient agrees that she has needs to address her chest pain/pressure, and was requesting an ambulance so she may go to the ER for a thorough evaluation. Gave patient 325mg chewable ASA and called 911 for her. Called [facility] ED with expect. Patient was informed and verbally consented to the use of an ambient scribe for clinic note documentation during this visit. Coding Level of Care Code Est Pt Level 5 (93992) Diagnoses Chest pressure R07.89
[2024-10-15 16:08] VITALS: BP 140/80; PULSE 80; O2SAT 98
== END 2024-10-15 16:53 | disposition home or self-care (01) ==
PROVIDERS: PCP Internal Medicine; Visit Provider Physician Assistant
DX: R07.89 Other chest pain (principal)

== ENCOUNTER → 2024-10-15 16:03 | Outpatient (BNVA) | payer MEDICARE, MEDICAID, SELFPAY | PROVIDERS: PCP Internal Medicine | DX: Z13.89 Encounter for screening for other disorder (principal) | CPT/HCPCS: 93005; 99212 ==

== ENCOUNTER 2024-10-15 17:17 | Emergency (ER) | payer MEDICARE, MEDICAID, SELFPAY ==
--- NOTE | 2024-10-15 | ECG_ITS ---
Test Reason : chest pain Blood Pressure : */* mmHG Vent. Rate : 68 BPM Atrial Rate : 68 BPM P-R Int : 158 ms QRS Dur : 92 ms QT Int : 386 ms P-R-T Axes : 67 104 67 degrees QTcB Int : 410 ms Normal sinus rhythm Rightward axis Borderline ECG When compared with ECG of 02-May-2023 15:40, No significant change was found Referred By: Generic ED Physician Electronically Signed By: Jermaine Escalera
--- NOTE | ~2024-10-15 | CT_ITS ---
CLINICAL HISTORY: chest discomfort ?PE CT angiography chest with contrast. 3D Postprocessing. Comparison: None Findings: The heart size is normal. RV/LV ratio is normal. Unremarkable thoracic aorta and great vessels. No aneurysm. No pulmonary artery filling defects. The visualized thyroid and mediastinum are unremarkable. No consolidation or effusion. The visualized upper abdomen is unremarkable. No acute fractures. IMPRESSION: 1. No pulmonary emboli. This document has been electronically signed by: Bulmaro Vaughn MD on 10/15/2024 22:43:40
--- NOTE | ~2024-10-15 | XR_ITS ---
CLINICAL HISTORY: chest pain 1 view chest x-ray Comparison: CR/SR - XR CHEST 2V - 05/02/23 14:50 EST Findings: No consolidation or effusion. Heart size is normal. No acute fracture. IMPRESSION: 1. No acute findings. This document has been electronically signed by: Calli Jones MD on 10/15/2024 18:03:23
[2024-10-15 17:27] VITALS: BP 129/86; PULSE 75; O2SAT 99
[2024-10-15 17:33] VITALS: BP 152/71; PULSE 68; RESP 18; TEMP 36.7; O2SAT 98; BMI 21.1
[2024-10-15 17:59] LABS: MANUAL DIFF FLAG NO
[2024-10-15 18:03] LABS: Basophils Percent Auto 0.6 % (0-2); Eosinophils Absolute Auto 0.1 X10*3/uL (0.0-0.4); Eosinophils Percent Auto 1.4 % (0-4); Hematocrit 37.5 % (37.0-47.0); Hemoglobin 12.3 g/dl (12.0-16.0); Imm Gran Abs Auto 0.01 X10*3/uL (0.00-0.03); Imm Gran Pct Auto 0.2 % (0.0-0.4); Lymphocytes Absolute Auto 2.1 X10*3/uL (1.2-4.9); Lymphocytes Percent Auto 32.5 % (20-40); Mean Corpuscular HGB Conc 32.8 g/dl (31.0-35.0); Mean Corpuscular Hemoglobin 29.9 pg (27.0-33.0); Mean Platelet Volume 8.5 fL (9.4-12.3); Monocytes Absolute Auto 0.7 X10*3/uL (0.1-1.2); Monocytes Percent Auto 10.5 % (2-11); Neutrophils Absolute Auto 3.6 x10*3/uL (2.0-8.3); Neutrophils Percent Auto 54.8 % (45-73); Platelet Count 264 X10*3/uL (160-400); Red Blood Count 4.12 X10*6/uL (4.20-5.50); White Blood Count 6.5 X10*3/uL (4.8-10.8)
[2024-10-15 18:22] LABS: Alanine Aminotransferase 22 U/L (0-31); Albumin Level 4.7 g/dL (3.5-5.0); Alkaline Phosphatase 55 U/L (39-117); Anion Gap 13 (12-20); Aspartate Amino Transferase 24 U/L (5-31); B Type Natriuretic Peptide 48 pg/mL (<100); Bilirubin Total 0.3 mg/dL (0.0-1.0); Blood Urea Nitrogen 15 mg/dL (9-16); Calcium 9.7 mg/dL (8.4-10.2); Carbon Dioxide 26 mmol/L (22-29); Chloride 105 mmol/L (96-108); Creatinine Clr Calc Pharmacy 72.3; Estimated Glomerular Filt Rate > 60; Glucose Random 83 mg/dL (60-115); Potassium 4.2 mmol/L (3.3-5.1); Sodium 140 mmol/L (135-145); Total Protein 7.5 g/dL (6.5-8.0)
[2024-10-15 18:23] LABS: Troponin-I High Sensitivity < 2.7 ng/L (<3.5-17.0)
[2024-10-15 18:41] LABS: Influenza A PCR NEGATIVE (Negative); Influenza B PCR NEGATIVE (Negative); Resp Syncy Virus RNA Qual PCR NEGATIVE (Negative); SARS COV2 PCR INHOUSE NEGATIVE (Negative)
[2024-10-15 19:23] VITALS: BP 91/52; PULSE 84; RESP 15; TEMP 36.8; O2SAT 98
--- NOTE | 2024-10-15 19:56 | PC.NURSE ---
Pt resting comfortably on stretcher. VSS. Pt denies any current pain.
--- NOTE | 2024-10-15 21:22 | ED_ITS ---
HPI - Chest Pain General Chief Complaint: Chest Pain Stated Complaint: chest pain x1 week Time Seen by Provider: 10/15/24 21:18 Source: patient Mode of arrival: ambulatory Limitations: no limitations History of Present Illness ED Provider: HPI narrative: Patient is 69 years old with intermittent left-sided chest pain off and on for last 1 week patient describes pain as heavy/pressure lasting only for few minutes with no radiation patient has had similar pain in 2022 and had workup done at that time Related Data Previous Rx's ?Medication ?Instructions ?Recorded valacyclovir 500 mg tablet 500 mg PO DAILY PRN cold sores #90 10/20/23 tabs levothyroxine 50 mcg tablet 50 mcg PO DAILY 90 days #90 tabs 10/13/24 simvastatin 20 mg tablet 20 mg PO BEDTIME 90 days #90 tabs 10/13/24 aspirin 81 mg tablet,delayed 81 mg PO DAILY #90 tabs 10/15/24 release (Ecotrin Low Strength) Allergies Allergy/AdvReac Type Severity Reaction Status Date / Time No Known Drug Allergies Allergy Unknown NONE Verified 10/15/24 17:35 [NO KNOWN DRUG ALLERGIES] Review of Systems 2 Review of Systems: Yes all other systems are reviewed and are negative PMF Past Medical History Medical History Lipid disorder Other specified hypothyroidism Osteoporosis Tubular adenoma of colon COPD, moderate Nicotine dependence, cigarettes, uncomplicated Deviated nasal septum Anxiety, generalized Major depression, recurrent Surgical History History of colonoscopy Family History Family History Father No problems noted. Mother No problems noted. Brother No problems noted. Brother Substance use disorder Brother Fibromyalgia Daughter No problems noted. Sister No problems noted. Sister No problems noted. Sister No problems noted. Sister No problems noted. Sister No problems noted. Sister No problems noted. Sister No problems noted. Social History Social History Housing: Assisted Living Facility Alcohol intake: current Alcohol intake frequency: holidays/special occasions only Patient Tobacco Use Status: Current everyday Tobacco user Cigarettes Per Day: 10 e-Cigarette/Vaping Use: Never Used Substance Use Type: Marijuana Advance Directives: No Advance Directives Information Provided: No service: No Current occupational status: retired Cognitive needs: No Hearing needs: No Vision needs: Yes Physical Exam 2 Vital Signs: Vital Signs: Last Vital Signs Temp 97.9 F 10/15/24 22:19 Pulse 51 10/15/24 22:19 Resp 16 10/15/24 22:19 BP 138/73 10/15/24 22:19 Pulse Ox 98 10/15/24 22:19 O2 Del Method Room Air 10/15/24 22:19 BMI result Body Mass Index 21.1 Appearance: Alert. Oriented X3. No acute distress. Eyes: PERRLA, No Nystagmus ENT: Pharynx normal. Oral Mucosa moist Neck: Normal inspection. Neck supple. CVS: Normal heart rate and rhythm. Pulses normal. Respiratory: No respiratory distress. Equal air entry bilateral, no wheezing/rales/rhonchi Abdomen: Soft and nontender. Bowel sounds are present, no mass palpable, no CVA tenderness Skin: Skin warm and dry. Normal skin color. Normal skin turgor. Extremities: No lower extremity edema. No calf tenderness Neuro: Oriented X 3. No motor deficit. No sensory deficit.No cerebellar signs , cranial nerves II-XII intact Medications Administered Discontinued Medications Generic Name Dose Route Start Last Admin Trade Name Serge PRN Reason Stop Dose Admin Iohexol 65 ml 10/15/24 22:01 10/15/24 22:02 Iohexol 350 Mg/Ml 100 Ml Infus..Btl IV 10/15/24 22:02 65 ml ONCE ONE Administration Medical Decision Making Medical Decision Making [facility] Narrative: Patient with chest pain of 1 week duration 2 sets of cardiac enzymes negative for delta change EKG without ischemic changes CTA chest done to rule out PE which was also negative Differential Diagnosis Differential Diagnoses: The differential diagnosis associated with the presentation includes Admission/Observation Consideration of admission/observation: Escalation of care including admission/observation considered Lab Data [facility] Lab Attestation statement: I reviewed the patient's lab results. 10/15/24 17:53 10/15/24 17:53 Labs: Lab Results 10/15/24 10/15/24 Range/Units 17:53 21:46 WBC 6.5 (4.8-10.8) X10*3/uL RBC 4.12 L (4.20-5.50) X10*6/uL Hgb 12.3 (12.0-16.0) g/dl Hct 37.5 (37.0-47.0) % MCV 91.0 (80.0-98.0) fL MCH 29.9 (27.0-33.0) pg MCHC 32.8 (31.0-35.0) g/dl RDW 13.0 (11.0-16.0) % Plt Count 264 D (160-400) X10*3/uL MPV 8.5 L (9.4-12.3) fL Immature Gran % (Auto) 0.2 (0.0-0.4) % Neut % (Auto) 54.8 (45-73) % Lymph % (Auto) 32.5 (20-40) % Aurora % (Auto) 10.5 (2-11) % Eos % (Auto) 1.4 (0-4) % Baso % (Auto) 0.6 (0-2) % Lymph # (Auto) 2.1 (1.2-4.9) X10*3/uL Aurora # (Auto) 0.7 (0.1-1.2) X10*3/uL Eos # (Auto) 0.1 (0.0-0.4) X10*3/uL Baso # (Auto) 0.0 (0.0-0.2) X10*3/uL Abs Immat Gran (auto) 0.01 (0.00-0.03) X10*3/uL Absolute Neuts (auto) 3.6 (2.0-8.3) x10*3/uL Absolute Nucleated RBC 0.000 (0.0-0.012) X10*3/uL Nucleated RBC % (auto) 0.0 (0.0-0.2) /100WBC PT 11.0 (10.9-12.4) SEC INR 0.9 (0.9-1.1) APTT 33.3 (26.0-36.8) SEC Hold Blue Top SEE NOTE Sodium 140 (135-145) mmol/L Potassium 4.2 (3.3-5.1) mmol/L Chloride 105 (96-108) mmol/L Carbon Dioxide 26 (22-29) mmol/L Anion Gap 13 (12-20) BUN 15 (9-16) mg/dL Creatinine 0.74 (0.5-1.4) mg/dL Estim Creat Clear Calc 72.3 Estimated GFR > 60 Random Glucose 83 (60-115) mg/dL Calcium 9.7 (8.4-10.2) mg/dL Total Bilirubin 0.3 (0.0-1.0) mg/dL AST 24 (5-31) U/L ALT 22 (0-31) U/L Alkaline Phosphatase 55 (39-117) U/L Troponin I High Sens < 2.7 < 2.7 (<3.5-17.0) ng/L B-Natriuretic Peptide 48 (<100) pg/mL Total Protein 7.5 (6.5-8.0) g/dL Albumin 4.7 (3.5-5.0) g/dL Influenza Type A (PCR) NEGATIVE (Negative) Influenza Type B (PCR) NEGATIVE (Negative) RSV RNA Qual (PCR) NEGATIVE (Negative) SARS-CoV-2 RNA (RT-PCR) NEGATIVE (Negative) Independent Interpretation I performed an independent interpretation of an: EKG Interpretation: Normal sinus rhythm with heart rate 68 beats per minute rightward axis no acute ST-T changes no acute ischemia no changes from the use EKG in 2022 Radiology Impression Discussion of test interpretation with radiology: I have reviewed the radiologist's reading. Radiologist Impression: CTA chest negative for PE Discharge Plan Discharge Clinical Impression: Chest pain Patient Disposition: Home, Self-Care Instructions: Chest Pain (ED) Additional Instructions: At this time there is no evidence of heart attack Need to follow up with supportive employment case manager/PCP for further workup Continue 81 mg aspirin daily Prescriptions: New aspirin [Ecotrin Low Strength] 81 mg tablet,delayed release (DR/EC) 81 mg PO DAILY Qty: 90 0RF No Action valacyclovir 500 mg tablet 500 mg PO DAILY PRN (Reason: cold sores) Qty: 90 0RF levothyroxine 50 mcg tablet 50 mcg PO DAILY 90 Days Qty: 90 1RF simvastatin 20 mg tablet 20 mg PO BEDTIME 90 Days Qty: 90 0RF Print Language: Norwegian
[2024-10-15 21:58] LABS: INTERNATIONAL NORM RATIO 0.9 (0.9-1.1)
[2024-10-15 22:01] LABS: Partial Thromboplastin Time 33.3 SEC (26.0-36.8)
[2024-10-15] MEDS: iohexoL 350 MG/ML 100 ML INFUS..BTL 65 ML IV (22:02)
[2024-10-15 22:15] LABS: Troponin-I High Sensitivity < 2.7 ng/L (<3.5-17.0)
[2024-10-15 22:19] VITALS: BP 138/73; PULSE 51; RESP 16; TEMP 36.6; O2SAT 98
[2024-10-15] MEDS: Aspirin Enteric Coated 81 MG TABLET.DR PO (23:19)
[2024-10-15 23:20] VITALS: BP 142/69; PULSE 73; RESP 16; TEMP 36.5; O2SAT 97
== END 2024-10-15 23:26 | disposition home or self-care (01) ==
PROVIDERS: Emergency Provider Internal Medicine; PCP Internal Medicine
DX: R07.9 Chest pain, unspecified (principal); Z03.818 Encounter for observation for suspected exposure to other biological agents ruled out
CPT/HCPCS: 0241U; 36415; 71045; 71275; 80053; 83880; 84484; 85025; 85610; 85730; 93005; 99212; 99284; 99285; Q9967

== ENCOUNTER → 2024-10-15 17:28 | Outpatient (BNV) | payer MEDICARE, MEDICAID, SELFPAY | PROVIDERS: Emergency Provider Internal Medicine; PCP Internal Medicine; Visit Provider Internal Medicine Cardiovascular Disease | DX: R07.9 Chest pain, unspecified (principal) | CPT/HCPCS: 93010 ==

== ENCOUNTER → 2024-10-15 17:37 | Outpatient (BNV) | payer MEDICARE, MEDICAID, SELFPAY | PROVIDERS: PCP Internal Medicine; Visit Provider Nuclear Medicine | DX: R07.89 Other chest pain (principal) | CPT/HCPCS: 71275 ==

== ENCOUNTER 2025-02-08 13:25 | Outpatient (AMB) | payer MEDICARE, MEDICAID, SELFPAY ==
[2025-02-08 13:28] VITALS: BP 142/76; PULSE 76; O2SAT 98; BMI 19.6
--- NOTE | 2025-02-08 13:28 | A.OFFPC_ITS ---
Vital Signs 02/08/25 13:28 Height 5 ft 8 in Weight 129 lb BMI 19.6 BP 142/76 H Blood Pressure Location Lt brachial Position Sitting Pulse 76 Pulse Source Pulse Oximeter Pulse Oximetry (%) 98 Intake Visit Reasons: review of medecation Allergies No Known Drug Allergies (NO KNOWN DRUG ALLERGIES) Allergy (Unknown, Verified 02/08/25 13:29) NONE Medication List - Last Reconciled 02/08/25 by Phill Bird MD aspirin (Ecotrin Low Strength) 81 mg PO DAILY levothyroxine 50 mcg PO DAILY 90 days simvastatin 20 mg PO BEDTIME 90 days valacyclovir 500 mg PO DAILY PRN Tobacco use date assessed: 02/08/25 Fall risk assessment: No Falls in past year Last assessed Fall Risk: 02/08/25 Dental Screening Dental Screen Date: 02/08/25 Did you have a dental visit in the last 12 months?: Yes Did you have a dental problem in the last 6 months where you did not have access to dental care?: No Was dental information given to patient?: Patient has dentist HPI review of medecation HPI Details Chief Complaint The patient expresses concerns about depression and high blood pressure. History The patient is a 70-year-old female presenting with depression, elevated blood pressure, and chronic marijuana use. Depression: - Episodes of depression noted, with the patient experiencing crying spells and a sense of hopelessness. - Depression attributed to political str essors and personal life challenges. - Previously not formally treated with m edication, but the impact recognized on general mood and function. Elevated Blood Pressure: - Episodes of high blood pressure with r eadings reported as high (specific reading of 142/76 reported during the visit). - The patient acknowledges nervousness m ay contribute, alongside a history of transportation-induced anxiety leading to elevated readings in clinical settings. Marijuana Use: - Chronic use of marijuana for over 53 y ears, primarily described as a coping mechanism for boredom and loneliness. - Current usage suspected to contribute to psychological distress and potential exacerbation of depression symptoms. - Symptoms include perceived paranoia an d exacerbation of isolation tendencies. Medical History: - Chronic Obstructive Pulmonary Disease (COPD) - Hypertension (noted with elevated bloo d pressure readings) - Depression (noted, but not formally tr eated with medication until this visit as patient continued to decline) Social History: - Recently relocated to a quiet housing area in [facility], facing limited access to transportation. - Describes a reclusive lifestyle with n o social interaction or engagement in community activities. - Reports long history of tobacco use, w ith recent cessation in May. - Chronic marijuana use discussed as a s ignificant part of daily routine due to boredom and lack of companionship. - Experiences isolation exacerbated by m arijuana use leading to paranoia and aversion to socializing. Problem List - Depression - Essential Hypertension - Chronic Obstructive Pulmonary Disease (COPD) - Chronic Marijuana Use Patient instructions: - Start medication as directed to stabil ize mood. - Reduce marijuana usage gradually. - Complete lab work as ordered. - Monitor for any changes in condition, particularly emotional response and blood pressure. - Return for follow-up in three weeks to assess the effectiveness of treatment and adjustments. Review of Systems General: No fever no chills neurological: No headaches no dizziness ear nose throat: No sore throat no hearing difficulty no ear pain cardiovascular: No syncope, no chest pain, no palpitations gastrointestinal: No nausea vomiting or diarrhea endocrine: No polyuria polydipsia no heat intolerance genitourinary: No dysuria skin: No new complaints Physical Exam general: No acute distress HEENT: No acute findings neck: Supple respiratory system: Lungs are clear, better than before, more clear, deeper cardiovascular: S1-S2 RRR, blood pressure is 142/76 gastrointestinal: No pain extremities: Ankles and feet were swollen after moving AURICULOTHERAPIST: Alert awake oriented x3 motor sensory intact skin: Normal turgor [facility] Medical History Lipid disorder Other specified hypothyroidism Osteoporosis Tubular adenoma of colon COPD, moderate Nicotine dependence, cigarettes, uncomplicated Deviated nasal septum Anxiety, generalized Major depression, recurrent Surgical History History of colonoscopy Family History Father No problems noted. Mother No problems noted. Brother No problems noted. Brother Substance use disorder Brother Fibromyalgia Daughter No problems noted. Sister No problems noted. Sister No problems noted. Sister No problems noted. Sister No problems noted. Sister No problems noted. Sister No problems noted. Sister No problems noted. Social History Housing: Assisted Living Facility Alcohol intake: current Alcohol intake frequency: holidays/special occasions only Patient Tobacco Use Status: Former Tobacco user Cigarettes Per Day: 10 e-Cigarette/Vaping Use: Never Used Substance Use Type: Marijuana service: No Current occupational status: retired Cognitive needs: No Hearing needs: No Vision needs: Yes Questionnaire PHQ-9 Over the last 2 weeks, how often have you been bothered by any of the following problems? 1. Little interest or pleasure in doing things: not at all 2. Feeling down, depressed, or hopeless: not at all 3. Trouble falling or staying asleep, or sleeping too much: not at all 4. Feeling tired or having little energy: not at all 5. Poor appetite or overeating: not at all 6. Feeling bad about yourself - or that you are a failure or have let yourself or your family down: not at all 7. Trouble concentrating on things, such as reading the newspaper or watching television: not at all 8. Moving or speaking so slowly that other people could have noticed. Or the opposite - being so fidgety or restless that you have been moving around a lot more than usual: not at all 9. Thoughts that you would be better off or of hurting yourself in some way: not at all Total score: 0 Depression Screening Interpretation: Negative Depression Screening Done: Yes 00246 - PHQ-9 Billing: Yes Source: Developed by Drs. Lester Mora, Dulce Byers, Mina Buckley and colleagues, with an educational iglesia from [employer]. Thrive Questionnaire Date Thrive assessed: 02/08/25 I am a: Patient What is your living situation today?: I have a steady place to live Within the past 12 months, did the food you bought not last and you didn't have the money to get more?: Never true Within the past 12 months, did you worry whether your food would run out before you got money to buy more?: Never true Do you have trouble paying for medicines?: No Do you have trouble getting transportation to medical appointments?: Yes Do you have trouble paying your heating and electricity bill?: No Do you have trouble taking care of your child, family member or friend?: No Do you have trouble with day-to-day activities such as bathing, preparing meals, shopping, managing finances, etc.?: No Are you currently unemployed and looking for a job?: No Are you interested in more education?: No Please select the resources that you would like help with: Transportation Currently or been in a relationship where the following occur: No concerns reported THRIVE Score: 1 AUDIT C Alcohol Use Questionnaire (AUDIT-C) 1. How often do you have a drink containing alcohol?: Monthly or less 2. How many drinks containing alcohol do you have on a typical day when you are drinking?: 1 or 2 3. How often do you have six or more drinks on one occasion?: Never Total Score: 1 Score Reviewed/Action Taken: Yes CHELITA-7 AMB Questionnaire CHELITA-7 Date CHELITA - 7 assessed: 02/08/25 Feeling nervous, anxious, or on edge: 1 = Several days Not being able to stop or control worryin = Several days Worrying too much about different things: 1 = Several days Trouble relaxin = Several days Being so restless that it is hard to sit still: 1 = Several days Becoming easily annoyed or irritable: 1 = Several days Feeling afraid as if something awful might happen: 1 = Several days Total CHELITA-7 score (0-4 normal; 5-9 mild; 10-14 moderate; 15-21 severe): 7 Source: Developed by Drs. Lester Mora, Dulce Byers, Mina Buckley and colleagues, with an educational iglesia from [employer]. CHELITA-7 Assessment Billing CHELITA-7 Assessment Tool: CHELITA-7 Assessment 60441 Physical exam (Primary Care) Vital Signs: Last Vital Signs Pulse 76 02/08/25 13:28 BP 142/76 H 02/08/25 13:28 Pulse Ox 98 02/08/25 13:28 BMI result Body Mass Index 19.6 Tobacco/Smoking Status: Tobacco use Status Tobacco use date assessed 02/08/25 02/08/25 13:30 Patient Tobacco Use Status Former Tobacco user 02/08/25 13:34 e-Cigarette/Vaping Use Never Used 02/08/25 13:30 PHQ-9: PHQ-9 Score PHQ-9: Total score 0 02/08/25 13:34 Depression Screening Interpretation: Negative Thrive Assessment: Date of Thrive Assessment Date Thrive assessed 02/08/25 02/08/25 13:30 Currently or been in a relationship where the following occur: No concerns reported Coding Level of Care Code Est Pt Level 4 (22661) Complex EM visit Add On G2211 Diagnoses COPD, moderate J44.9 Cannabis dependence F12.20 Moderate episode of recurrent major depressive disorder F33.1 Active/Remission status: currently active Major depression episode severity: moderate Lipid disorder E78.9 Other specified hypothyroidism E03.8 Age-related osteoporosis without current pathological fracture M81.0 Osteoporosis type: age-related Presence of current pathological fracture: without current pathological fracture Additional Codes CHELITA-7 Assessment Billing - CHELITA-7 Assessment Tool: CHELITA-7 Assessment 19627 ([id number]) PHQ-9 - 27046 - PHQ-9 Billing: Yes ([id number]) Assessment & Plan Assessment & Plan (1) COPD, moderate: Comment: (As per 2020 PFT - Moderatley severe COPD, secondary to pulmonary emphysema) Code(s): J44.9 - Chronic obstructive pulmonary disease, unspecified Category: Medical (2) Cannabis dependence: Code(s): F12.20 - Cannabis dependence, uncomplicated Category: Medical (3) Major depression, recurrent: Code(s): F33.9 - Major depressive disorder, recurrent, unspecified Category: Medical Qualifiers: Active/Remission status: currently active Major depression episode severity: moderate Qualified Code(s): F33.1 - Major depressive disorder, recurrent, moderate (4) Lipid disorder: Code(s): E78.9 - Disorder of lipoprotein metabolism, unspecified Category: Medical (5) Other specified hypothyroidism: Code(s): E03.8 - Other specified hypothyroidism Category: Medical (6) Osteoporosis: Comment: (Bone Dexa Lumbar T-score: -3.4 on 06/27/16) Code(s): M81.0 - Age-related osteoporosis without current pathological fracture Category: Medical Qualifiers: Osteoporosis type: age-related Presence of current pathological fracture: without current pathological fracture Qualified Code(s): M81.0 - Age- related osteoporosis without current pathological fracture Plan Chief Complaint The patient expresses concerns about depression and high blood pressure. History The patient is a 70-year-old female presenting with depression, elevated blood pressure, and chronic marijuana use. Depression: - Episodes of depression noted, with the patient experiencing crying spells and a sense of hopelessness. - Depression attributed to political stressors and personal life challenges. - Previously not formally treated with medication, but the impact recognized on general mood and function. Elevated Blood Pressure: - Episodes of high blood pressure with readings reported as high (specific read ing of 142/76 reported during the visit). - The patient acknowledges nervousness may contribute, alongside a history of transportation-induced anxiety leading to elevated readings in clinical settings . Marijuana Use: - Chronic use of marijuana for over 53 years, primarily described as a coping mechanism for boredom and loneliness. - Current usage suspected to contribute to psychological distress and potential exacerbation of depression symptoms. - Symptoms include perceived paranoia and exacerbation of isolation tendencies. Medical History: - Chronic Obstructive Pulmonary Disease (COPD) - Hypertension (noted with elevated blood pressure readings) - Depression (noted, but not formally treated with medication until this visit as patient continued to decline) Social History: - Recently relocated to a quiet housing area in [facility], facing limited access to transportation. - Describes a reclusive lifestyle with no social interaction or engagement in community activities. - Reports long history of tobacco use, with recent cessation in May. - Chronic marijuana use discussed as a significant part of daily routine due to boredom and lack of companionship. - Experiences isolation exacerbated by marijuana use leading to paranoia and aversion to socializing. Problem List - Depression - Essential Hypertension - Chronic Obstructive Pulmonary Disease (COPD) - Chronic Marijuana Use Patient instructions: - Start medication as directed to stabilize mood. - Reduce marijuana usage gradually. - Complete lab work as ordered. - Monitor for any changes in condition, particularly emotional response and blood pressure. - Return for follow-up in three weeks to assess the effectiveness of treatment and adjustments. Orders: Orders TSH reflex Free T4 Today E03.8 - Other specified hypothyroidism, E78.9 - Disorder of lipoprotein metabolism, unspecified, F33.1 - Major depressive disorder, recurrent, moderate, J44.9 - Chronic obstructive pulmonary disease, unspecified, M81.0 - Age-related osteoporosis without current pathological fracture Complete Blood Count Auto Diff Today E03.8 - Other specified hypothyroidism, E78.9 - Disorder of lipoprotein metabolism, unspecified, F33.1 - Major depressive disorder, recurrent, moderate, J44.9 - Chronic obstructive pulmonary disease, unspecified, M81.0 - Age-related osteoporosis without current pathological fracture Comprehensive Met. Panel Today E03.8 - Other specified hypothyroidism, E78.9 - Disorder of lipoprotein metabolism, unspecified, F33.1 - Major depressive disorder, recurrent, moderate, J44.9 - Chronic obstructive pulmonary disease, unspecified, M81.0 - Age-related osteoporosis without current pathological fracture LDL Cholesterol Direct Today E03.8 - Other specified hypothyroidism, E78.9 - Disorder of lipoprotein metabolism, unspecified, F33.1 - Major depressive disorder, recurrent, moderate, J44.9 - Chronic obstructive pulmonary disease, unspecified, M81.0 - Age-related osteoporosis without current pathological fracture Medications: New escitalopram oxalate (Lexapro) 10 mg PO DAILY 90 tabs 0RF Refilled levothyroxine 50 mcg PO DAILY 90 tabs 1RF 90 days simvastatin 20 mg PO BEDTIME 90 tabs 0RF 90 days valacyclovir 500 mg PO DAILY PRN 90 tabs 0RF cold sores
--- OUTSIDE RECORDS SUMMARY | 2025-02-08 14:21 | XMS_ITS | Encounter Summary ---
Author Organization [employer] Address [address] [place] [address] Care Team Providers Care Automobile Technician Name Role Phone Unavailable Primary Care Provider Unavailabl e Encounter Details Date Type Department Care Team (Late st Contact Info) Description 06/24/2024 Telephone [facility] [address], [place] [phone] Keaton Matthew, DMD [address] [place] [address] Social History Tobacco Use Types Packs/Day Years Used Date Smoking Tobacco: Never Assessed Comments Unknown Sex and Gender Information Value Date Recorded Sex Assigned at Female 04/15/2022 10:15 AM EDT Legal Sex Female 10:15 AM EDT Gender Identity Female 04/15/2022 10:15 AM EDT Sexual Orientation Straight 04/15/2022 10 :15 AM EDT documented as of this encounter Miscellaneous Notes * Telephone Encounter - Vida Christie - 06/24/2024 1:24 PM EST Patient is checking in on status of comp appt. Wait list since 12/2023 documented in this encounter Plan of Treatment Not on file documented as of this encounter Visit Diagnoses Not on filedocumented in this encounter
--- OUTSIDE RECORDS SUMMARY | 2025-02-08 14:21 | XMS_ITS | Clinical Summary ---
Author Organization [employer] Address [address] [place] [address] Care Team Providers Care Header Set Up Operator Name Role Phone Unavailable Primary Care Provider [...] 2023-2 5 season) 2024 Influenza Vaccine (#1) 2025 RSV Patients and Pa tients Aged 60 [...] patient's age to complete this topic Meningococcal B Vaccine Aged Out No l onger eligible based on patient's age to complete this topic Meningococcal Vaccine Aged Out No daisha vivian eligible based on patient's age to complete this topic RSV under 20 months Aged Out No longe r eligible based on patient's age to complete this topic Rotavirus Vaccines Aged Out No longer eligible based on patient's age to complete this topic
== END 2025-02-08 15:02 | disposition home or self-care (01) ==
LOC: HO.HMCC 13:26
PROVIDERS: PCP Internal Medicine; Visit Provider Internal Medicine
DX: J44.9 Chronic obstructive pulmonary disease, unspecified (principal); F12.20 Cannabis dependence, uncomplicated; F33.1 Major depressive disorder, recurrent, moderate; E78.9 Disorder of lipoprotein metabolism, unspecified; E03.8 Other specified hypothyroidism; M81.0 Age-related osteoporosis without current pathological fracture

== ENCOUNTER 2025-02-08 13:25 | Outpatient (REF) | payer MEDICARE, MEDICAID, SELFPAY ==
[2025-02-08 16:15] LABS: MANUAL DIFF FLAG NO
[2025-02-08 16:27] LABS: Hematocrit 39.5 % (37.0-47.0); Hemoglobin 12.8 g/dl (12.0-16.0); Imm Gran Abs Auto 0.02 X10*3/uL (0.00-0.03); Imm Gran Pct Auto 0.3 % (0.0-0.4); Lymphocytes Absolute Auto 2.6 X10*3/uL (1.2-4.9); Mean Corpuscular HGB Conc 32.4 g/dl (31.0-35.0); Mean Corpuscular Hemoglobin 29.0 pg (27.0-33.0); Mean Corpuscular Volume 89.4 fL (80.0-98.0); NRBC Abs Auto 0.000 X10*3/uL (0.0-0.012); NRBC Pct Auto 0.0 /100WBC (0.0-0.2); Platelet Count 331 X10*3/uL (160-400); Red Blood Count 4.42 X10*6/uL (4.20-5.50); White Blood Count 7.6 X10*3/uL (4.8-10.8)
[2025-02-08 16:44] LABS: Alanine Aminotransferase 32 U/L (0-31); Albumin Level 4.9 g/dL (3.5-5.0); Alkaline Phosphatase 57 U/L (39-117); Anion Gap 14 (12-20); Aspartate Amino Transferase 29 U/L (5-31); Blood Urea Nitrogen 14 mg/dL (9-16); Calcium 9.6 mg/dL (8.4-10.2); Carbon Dioxide 26 mmol/L (22-29); Chloride 103 mmol/L (96-108); Cholesterol 207 mg/dL (<200); Estimated Glomerular Filt Rate 47; HDL Cholesterol 69 mg/dL (>40); Potassium 3.7 mmol/L (3.3-5.1); Sodium 139 mmol/L (135-145); Total Protein 7.7 g/dL (6.5-8.0); Triglycerides 188 mg/dL (<150)
== END 2025-02-08 13:26 | disposition home or self-care (01) ==
LOC: HO.HMGCLDS 13:25
PROVIDERS: PCP Internal Medicine; Visit Provider Internal Medicine
DX: F33.1 Major depressive disorder, recurrent, moderate (principal); E78.9 Disorder of lipoprotein metabolism, unspecified; E03.8 Other specified hypothyroidism; M81.0 Age-related osteoporosis without current pathological fracture; J44.9 Chronic obstructive pulmonary disease, unspecified; F17.210 Nicotine dependence, cigarettes, uncomplicated; Z79.82 Long term (current) use of aspirin; Z79.890 Hormone replacement therapy; Z79.899 Other long term (current) drug therapy; F12.20 Cannabis dependence, uncomplicated
CPT/HCPCS: 36415; 80053; 80061; 83721; 84443; 85025; 96127; 99212

== ENCOUNTER 2025-05-06 14:26 | Outpatient (AMB) | payer MEDICARE, MEDICAID, SELFPAY ==
[2025-05-06 14:29] VITALS: BP 142/76; PULSE 76; O2SAT 98; BMI 22.8
--- NOTE | 2025-05-06 14:29 | A.OFFPC_ITS ---
Vital Signs 05/06/25 14:29 Height 5 ft 8 in Weight 150 lb BMI 22.8 BP 142/76 H Blood Pressure Location Lt brachial Position Sitting Pulse 76 Pulse Source Pulse Oximeter Pulse Oximetry (%) 98 Intake Visit Reasons: High Cholesterol Allergies No Known Drug Allergies (NO KNOWN DRUG ALLERGIES) Allergy (Unknown, Verified 05/06/25 14:29) NONE Medication List - Last Reconciled 05/06/25 by Phill Bird MD aspirin (Ecotrin Low Strength) 81 mg PO DAILY escitalopram oxalate (Lexapro) 10 mg PO DAILY levothyroxine 50 mcg PO DAILY 90 days simvastatin 20 mg PO BEDTIME 90 days valacyclovir 500 mg PO DAILY PRN Tobacco use date assessed: 02/08/25 Fall risk assessment: No Falls in past year Last assessed Fall Risk: 05/06/25 Dental Screening Dental Screen Date: 02/08/25 HPI HPI Comments History of Present Illness Details History of Present Illness The 70-year-old individual presents for a follow-up visit to discuss medication management, substance use, anxiety, and elevated blood pressure. Hypertension: - The patient's blood pressure is elevat ed. - A diagnosis of hypertension will be ma de if it is elevated on two separate occasions. - The cause is unclear and may be relate d to anxiety or essential hypertension. Anxiety and Depression: - The patient reports smoking due to anx iety. - The patient was previously prescribed escitalopram but was afraid to take it and did not. - The patient has a three-month supply a t home and now agrees to start the low- dose medication. - Depression is also noted, which may be exacerbated by marijuana use. Substance Use: - The patient has a history of smoking f or most of their life and acknowledges the negative health effects. - After one year of smoking cessation, t he patient relapsed on April 20. - The patient is also struggling with si gnificant marijuana use, which the patient states has ruined their life. Hypercholesterolemia: - The patient initially confused elevate d blood pressure with high cholesterol. - Blood tests from January confirmed that cholesterol levels are good while taking simvastatin 20 mg. Hypothyroidism: - Lab results indicate the patient's thy roid function is okay. - The condition is managed with levothyr oxine 50 mcg. Medical History: - Hypertension - Hypercholesterolemia, managed with sim vastatin - Hypothyroidism, managed with levothyro xine - Depression - Anxiety - Postmenopausal status Medications: - Levothyroxine 50 mcg for hypothyroidis m. - Simvastatin 20 mg for hypercholesterol emia. - Escitalopram, previously prescribed fo r anxiety/depression, which the patient has not yet started but possesses a three-month supply. Social History: - Tobacco Use: Reports being a lifelong smoker with a recent relapse after one year of cessation. - Marijuana Use: Reports significant cur rent use, stating it is so bad now and has ruined their life. - Housing: Recently moved to a new [facility] in [facility]. - Functional Status: Reports subjective memory issues. [facility] Medical History Lipid disorder Other specified hypothyroidism Osteoporosis Tubular adenoma of colon COPD, moderate Nicotine dependence, cigarettes, uncomplicated Deviated nasal septum Anxiety, generalized Major depression, recurrent Surgical History History of colonoscopy Family History Father No problems noted. Mother No problems noted. Brother No problems noted. Brother Substance use disorder Brother Fibromyalgia Daughter No problems noted. Sister No problems noted. Sister No problems noted. Sister No problems noted. Sister No problems noted. Sister No problems noted. Sister No problems noted. Sister No problems noted. Social History Housing: Assisted Living Facility Alcohol intake: current Alcohol intake frequency: holidays/special occasions only Patient Tobacco Use Status: Former Tobacco user Cigarettes Per Day: 10 e-Cigarette/Vaping Use: Never Used Substance Use Type: Marijuana service: No Current occupational status: retired Cognitive needs: No Hearing needs: No Vision needs: Yes Questionnaire Thrive Questionnaire Date Thrive assessed: 02/03/25 I am a: Patient What is your living situation today?: I have a steady place to live Within the past 12 months, did the food you bought not last and you didn't have the money to get more?: Never true Within the past 12 months, did you worry whether your food would run out before you got money to buy more?: Never true Do you have trouble paying for medicines?: No Do you have trouble getting transportation to medical appointments?: Yes Do you have trouble paying your heating and electricity bill?: No Do you have trouble taking care of your child, family member or friend?: No Do you have trouble with day-to-day activities such as bathing, preparing meals, shopping, managing finances, etc.?: No Are you currently unemployed and looking for a job?: No Are you interested in more education?: No Please select the resources that you would like help with: Transportation Currently or been in a relationship where the following occur: No concerns reported THRIVE Score: 1 CHELITA-7 AMB Questionnaire CHELITA-7 Date CHELITA - 7 assessed: 02/08/25 Source: Developed by Drs. Lester Mora, Dulce Byers, Mina Buckley and colleagues, with an educational iglesia from [employer]. Review of Systems Narrative Review of Systems. - General: No fever no chills - Neurological: No headaches no dizziness - Ear nose throat: No sore throat no hearing difficulty no ear pain - Cardiovascular: No syncope, no chest pain, no palpitations - Gastrointestinal: No nausea vomiting or diarrhea - Endocrine: No polyuria polydipsia no heat intolerance - Genitourinary: No dysuria , no blood in urine Physical exam (Primary Care) Vital Signs: Last Vital Signs Pulse 76 05/06/25 14:29 BP 142/76 H 05/06/25 14:29 Pulse Ox 98 05/06/25 14:29 BMI result Body Mass Index 22.8 Tobacco/Smoking Status: Tobacco use Status Tobacco use date assessed 02/08/25 05/06/25 14:30 Patient Tobacco Use Status Former Tobacco user 05/06/25 14:30 e-Cigarette/Vaping Use Never Used 05/06/25 14:30 Are you ready to quit: Yes Tobacco cessation counseling provided: Yes Relapse Prevention: discussed the importance of a supportive environment CPT code: 27392 - 4-10 Minutes Thrive Assessment: Date of Thrive Assessment Date Thrive assessed 02/03/25 05/06/25 14:30 Currently or been in a relationship where the following occur: No concerns reported Narrative Physical Exam General: No acute distress HEENT: No acute findings Neck: Supple Respiratory system: Able to talk in full sentences, no audible wheeze Cardiovascular: S1-S2 regular in rate and rhythm, blood pressure is high Gastrointestinal: No pain Extremities: No new findings ELECTRICIAN STATION ASSISTANT: Alert awake oriented x3 motor intact Skin: Normal turgor Coding Level of Care Code Complex visit Add On G2211 Diagnoses COPD, moderate J44.9 Cannabis dependence F12.20 Moderate episode of recurrent major depressive disorder F33.1 Active/Remission status: currently active Major depression episode severity: moderate Lipid disorder E78.9 Other specified hypothyroidism E03.8 Nicotine dependence, cigarettes, uncomplicated F17.210 Additional Codes Vital Signs *Quality* - CPT code: 24416 - 4-10 Minutes ([id number]) Assessment & Plan Assessment & Plan (1) COPD, moderate: Comment: (As per 2020 PFT - Moderatley severe COPD, secondary to pulmonary emphysema) Code(s): J44.9 - Chronic obstructive pulmonary disease, unspecified Category: Medical (2) Cannabis dependence: Code(s): F12.20 - Cannabis dependence, uncomplicated Category: Medical (3) Major depression, recurrent: Code(s): F33.9 - Major depressive disorder, recurrent, unspecified Category: Medical Qualifiers: Active/Remission status: currently active Major depression episode severity: moderate Qualified Code(s): F33.1 - Major depressive disorder, recurrent, moderate (4) Lipid disorder: Code(s): E78.9 - Disorder of lipoprotein metabolism, unspecified Category: Medical (5) Other specified hypothyroidism: Code(s): E03.8 - Other specified hypothyroidism Category: Medical (6) Nicotine dependence, cigarettes, uncomplicated: Comment: (1ppd x 52yrs, now 1/2ppd) Code(s): F17.210 - Nicotine dependence, cigarettes, uncomplicated Category: Medical Plan Problem List - Hypertension - Tobacco Use Disorder - Cannabis Use Disorder - Anxiety - Depression - Hypercholesterolemia, managed - Hypothyroidism, managed - Postmenopausal status - COPD Plan - The patient will start taking the prescribed escitalopram for anxiety and depression. - The patient was strongly advised to reduce both tobacco and marijuana use. - Continue current medications: levothyroxine 50 mcg and simvastatin 20 mg. - Schedule a follow-up appointment in late August or early September to monitor progress and recheck blood pressure.
--- OUTSIDE RECORDS SUMMARY | 2025-05-06 14:48 | XMS_ITS | Encounter Summary ---
Author Organization [employer] Address [address] [facility] [address] [place] [address] Care Team Providers Care Check Processing Clerk Name Role Phone Unavailable Primary Care Provider Unavailabl e Encounter Details Date Type Department Care Team (Late st Contact Info) Description 06/24/2024 Telephone [facility] [address], [place] [id number] Keaton Matthew, DMD [address] [place] [address] Social History Tobacco Use Types Packs/Day Years [...]
--- OUTSIDE RECORDS SUMMARY | 2025-05-06 14:48 | XMS_ITS | Clinical Summary ---
Author Organization [employer] Address [address] [facility] [address] [place] [address] Care Team Providers Care Chemical Supervisor Name Role Phone Unavailable Primary Care Provider [...] of 2) 01/23/2006 COVID-19 Vaccine ( - 2024-2 6 season) 2025 Influenza Vaccine (#1) 2025 RSV Patients and [...]
== END 2025-05-06 16:08 | disposition home or self-care (01) ==
LOC: HO.HMCC 14:26
PROVIDERS: PCP Internal Medicine; Visit Provider Internal Medicine
DX: J44.9 Chronic obstructive pulmonary disease, unspecified (principal); F12.20 Cannabis dependence, uncomplicated; F33.1 Major depressive disorder, recurrent, moderate; E78.9 Disorder of lipoprotein metabolism, unspecified; E03.8 Other specified hypothyroidism; F17.210 Nicotine dependence, cigarettes, uncomplicated

== ENCOUNTER → 2025-05-06 14:26 | Outpatient (BNVA) | payer MEDICARE, MEDICAID, SELFPAY | PROVIDERS: PCP Internal Medicine; Visit Provider Internal Medicine | DX: J44.9 Chronic obstructive pulmonary disease, unspecified (principal); F12.20 Cannabis dependence, uncomplicated; F33.1 Major depressive disorder, recurrent, moderate; E78.9 Disorder of lipoprotein metabolism, unspecified; E03.8 Other specified hypothyroidism; F17.210 Nicotine dependence, cigarettes, uncomplicated; Z71.6 Tobacco abuse counseling | CPT/HCPCS: 99212 ==